=== PATIENT | female | born 1950 | race Caucasian/White ===

== ENCOUNTER → 2016-09-20 | Outpatient (CLI) | payer BC ==
[~2016-09-20] MED LIST: ANT25 PO; ASCO500T16 PO; ASPI81TA28 PO; ATOR-26 PO; BECL1AER5 NAE; CALC-354 PO; FLUO10CA24 PO; FLUO20CA20 PO; GABA1CAP4 PO; LCTX PO; LPT40 PO; LSN5 PO; MECL1TAB42 PO; METH-467 PO; METO25TA3 PO; MOME6000 NAE; MULT-614 PO; NITR0.4S UT; NITR100C6 PO; NRV/5 PO; OMEG10007 PO; PRAM0.129 PO; RANI300C PO
--- NOTE | 2016-09-20 09:22 | DIAGNOSTIC IMAGING REPORT ---
CT SCAN OF THE PARANASAL SINUSES CLINICAL HISTORY: Chronic sinusitis. COMPARISON STUDY: CT of the paranasal sinuses dated 10/13/2010. MRI of the brain dated 10/13/2010. TECHNIQUE: High-resolution CT scan of the paranasal sinuses is performed. Images are reviewed in the axial, sagittal, and coronal planes. IV contrast was not administered for this examination. A dose lowering technique was utilized adhering to the principles of ALARA. CT DOSE: 285.25 mGycm FINDINGS: Postoperative change: There is evidence of maxillary antrectomy with bilateral antrostomy formation as well as ethmoid sinus resection. Maxillary antra: Clear bilaterally. Ethmoid cavities: Clear bilaterally. Sphenoid sinuses: Clear. Frontal sinuses: Trace mucosal thickening is seen bilaterally. Antrostomies: Patent bilaterally. Frontoethmoidal and sphenoethmoidal recesses: Patent bilaterally. Carotid arteries: The carotid arteries are covered noting a septal attachment on the right. Ethmoid roofs: The ethmoid roofs are symmetric. Small bony defects are questioned in the ethmoid roof bilaterally, best seen on coronal image #19. Nasal turbinates: Normal in appearance. Nasal septum: There is minimal leftward deviation of the bony nasal septum. Optic nerves: Covered. Orbits: The bony orbits are intact. Orbital contents are normal in appearance. Calvarium: The imaged calvarium is normal in appearance Mastoid air cells: Underpneumatized but clear bilaterally. Brain parenchyma: A 6 mm calcified extra-axial nodule seen on image #122 is unchanged and likely represents a small meningioma. Partially visualized brain parenchyma is within normal limits. IMPRESSION: Postoperative change with no significant paranasal sinus disease identified. See above. Electronically signed by: Harrison Godoy M.D. 09/20/2016 9:21 AM Dictated Date/Time: 09/20/2016 9:16 AM
== END | disposition home or self-care (01) ==
LOC: C.CTS 08:54
PROVIDERS: ATTEND Otolaryngology
DX: J32.9 Chronic sinusitis, unspecified (principal)

== ENCOUNTER 2016-10-10 14:27 | Observation (INO) | payer BC ==
[~2016-10-10] VITALS: Ht 172.7 cm; Wt 106.4 kg
[2016-10-10] VITALS (9 sets, daily range): BP systolic 112–138; BP diastolic 66–74; PULSE 55–61; TEMP 36.5–36.7; O2SAT 93–97; Ht 172.7 cm; Wt 106.4 kg
[~2016-10-10 14:27] MED LIST changes: -ASCO500T16 PO; -ASPI81TA28 PO; -ATOR-26 PO; -CALC-354 PO; -FLUO10CA24 PO; -FLUO20CA20 PO; -GABA1CAP4 PO; -LCTX PO; -LSN5 PO; -MECL1TAB42 PO; -METH-467 PO; -METO25TA3 PO; -MOME6000 NAE; -MULT-614 PO; -NITR0.4S UT; -NRV/5 PO; -RANI300C PO
[2016-10-10] MEDS ORDERED: MOME6000 NAE (15:18)
[2016-10-10] MEDS ORDERED: GABA1CAP4 PO (15:18)
[2016-10-10] MEDS ORDERED: ATOR-26 PO (15:18)
[2016-10-10] MEDS ORDERED: NITROGLYCERIN OINT 2% 1GM PACKET EXT STA (15:19)
[2016-10-10] MEDS ORDERED: NITROGLYCERIN/D5W 100MCG/ML 20ML SYR ONE (15:20)
[2016-10-10] MEDS ORDERED: HEPARIN SOD (PORCINE) 1000 UNIT/ML 10 ML VIAL ONE ×2 (15:20→15:26)
[2016-10-10] MEDS ORDERED: MIDAZOLAM HCL 1 MG/ML 2ML VIAL ONE (15:20)
[2016-10-10] MEDS ORDERED: FENTANYL CITRATE INJ 50 MCG/1 ML 2 ML VIAL ONE (15:20)
[2016-10-10] MEDS ORDERED: MECL1TAB42 PO (15:20)
[2016-10-10] MEDS ORDERED: NiCARDipine HCL INJ 2.5 MG/ML 10 ML AMP ONE (15:20)
[2016-10-10] MEDS ORDERED: ASPIRIN 81 MG CHEW PO STA (15:21)
[2016-10-10] MEDS ORDERED: NITROGLYCERIN 0.4 MG SL PER TAB CHARGE ONE (15:23)
[2016-10-10] MEDS ORDERED: NITROGLYCERIN 0.4 MG SL PER TAB CHARGE SL ONE (15:30)
[2016-10-10] MEDS ORDERED: HEPARIN SOD (PORCINE) 1000 UNIT/ML 10 ML VIAL IV ONE (15:30)
[2016-10-10] MEDS ORDERED: NITROGLYCERIN 0.4 MG SL PER TAB CHARGE SL PRN ×2 (15:45→17:15)
[2016-10-10] MEDS ORDERED: LCTX PO (15:45)
[2016-10-10 15:46] LABS: BASO % 0.7 %; BASO ABS # 0.05 K/uL (0-0.2); COMPLETE YES; EOS % 3.4 %; HEMATOCRIT 43.1 % (37-47); IG% 0.4 %; LYMPH ABS # 2.04 K/uL (1.2-3.4); MEAN CELL VOLUME 90.5 fL (80-100); MEAN CORPUSCULAR HEMOGLOBIN 31.5 pg (25-34); MEAN CORPUSCULAR HGB CONC 34.8 g/dl (32-36); MEAN PLATELET VOLUME 9.4 fL (7.4-10.4); MONO % 7.4 %; NEUT % 59.1 %; PLATELET COUNT 226 K/uL (130-400); RED BLOOD COUNT 4.76 M/uL (4.2-5.4); WHITE BLOOD COUNT 7.03 K/uL (4.8-10.8)
--- NOTE | 2016-10-10 15:48 | EMERGENCY ROOM VISIT NOTE ---
ED Visit Note First contact with patient: 15:01 Pt seen and examined at bedside with the PA. I obtained my history and performing physical patient also. Patient with concerning story for chest pain and found to have a new left bundle-branch block on EKG. Upon noticing this the PA came to me and we immediately called a hard alert. Cardiology came to bedside and discussed with the tea tree farmer with the time were already performing a catheterization on the lab. Patient's vital signs in the emergency room stable, she was mildly hypertensive. Patient stated she had had a cardiac catheterization approximate 5 years ago, but has no indwelling stents. Patient states she does follow with a dot net developer regularly as a precaution. Patient denies any recent illness or injury. Patient's pain nonradiating, mild lightheadedness and mild sense of difficulty breathing noted. Patient aware of concern and need for emergent cardiology involvement and likely catheterization again today. She was agreeable with plan. Aspirin ordered, nitroglycerin ordered as well. Additional orders will be directed by cardiology now bedside. Doubt dissection, tamponade, PE, pneumothorax given chronicity of symptoms evolving over the course of the last month and noted only with exertion until last evening.
[2016-10-10 15:49] LABS: ISTAT CREATININE 1.1 mg/dl (0.6-1.3); ISTAT HEMOGLOBIN 14.3 g/dl (12.0-16.0); ISTAT IONIZED CALCIUM 1.21 mmol/l (1.12-1.32)
--- NOTE | 2016-10-10 15:49 | EMERGENCY ROOM VISIT NOTE ---
History First contact with patient: 15:01 Chief Complaint: CARDIAC ASSESSMENT Stated Complaint: HEAVINESS IN CHEST, FLUTTERING Nursing Triage Summary: Pt. reports tightness in her chest that worsens with activity. She reports walking around last night and felt a "fluttering" in her chest that resolved with rest. Reports having a heart cath in the past. History of Present Illness The patient is a 66 year old female who presents to the Emergency Room via private vehicle accompanied by with complaints of "heaviness in chest, fluttering". The patient states that she has a history of previous heart catheterization and follows with Dr. Pyle. Most recently this past Friday she was walking, and developed the chest heaviness, and his sensation is associated take a deep breath. She states that this has continued when she exerts herself. Yesterday evening after exertion the pain persisted, and did not go away. She fell asleep with the pain, and woke up today with the chest discomfort still in the substernal region. She at this time notes she took an 81 mg aspirin this morning, and denies any history of blood clots, shortness of breath currently or smoking. Review of Systems A complete 10-point Review of Systems was discussed with the patient, with pertinent positives and negatives listed in the History of Present Illness. All remaining Review of Systems questions can be considered negative unless otherwise specified. Past Medical/Surgical History Medical Problems: (1) Bacteremia (2) Clostridium difficile colitis (3) Cystocele (4) Depression (5) History of coronary artery disease (6) Hyperlipidemia (7) Migraine (8) Rectocele (9) Sleep apnea (10) Traumatic perforation of large intestine Surgical Problems: (1) H/O foot surgery (2) H/O sinus surgery (3) H/O: hysterectomy (4) Hx of shoulder surgery (5) Hx of tonsillectomy (6) S/P BSO (status post bilateral salpingo-oophorectomy) Family History Cancer Diabetes mellitus FH: heart disease Hypertension Social History Smoking Status: Never Smoker Alcohol Use: none Drug Use: none Marital Status: Housing Status: lives with family Occupation Status: retired Current/Historical Medications Scheduled Amlodipine Besylate (Amlodipine Besylate), 5 MG PO DAILY Ascorbic Acid (Ascorbic Acid), 500 MG PO BID Aspirin (Aspirin Ec), 81 MG PO DAILY Atorvastatin (Lipitor), 80 MG PO HS Calcium Carbonate-Cholecalcife (Caltrate 600+D), 1 TAB PO HS Fish Oil (Culver-3), 2 CAP PO BID Fluoxetine HCl (Fluoxetine HCl), 10 MG PO DAILY Gabapentin (Gabapentin), 600 MG PO HS Lactobacillus Acidophilus (Lactinex), 2 TABS PO QAM Lisinopril (Lisinopril), 5 MG PO DAILY Methenamine Mandelate (Methenamine Mandelate), 1 GM PO BID Metoprolol Succinate (Toprol Xl), 25 MG PO QAM Mometasone Furoate (Nasal) (Mometasone Furoate), 1 SPRAY WAQAR DAILY Multiple Vitamins W/ Minerals (Centrum Silver Ultra Wome), 1 TAB PO DAILY Scheduled PRN Meclizine Hcl (Meclizine Hcl), 25 MG PO TID PRN for Dizziness or Vertigo Physical Exam Vital Signs Date Time Temp Pulse Resp B/P (MAP) Pulse Ox O2 Delivery O2 Flow Rate FiO2 10/10/16 17:00 36.6 57 19 121/74 (90) 94 Room Air 10/10/16 16:45 36.6 60 19 128/72 94 Room Air 10/10/16 16:20 65 16 112/64 (80) 98 Room Air 10/10/16 16:15 65 16 107/86 (93) 98 Room Air 10/10/16 16:10 60 16 145/66 (92) 98 Room Air 10/10/16 16:09 60 16 145/66 (92) 98 Room Air 10/10/16 15:31 85 20 153/70 98 Room Air 10/10/16 15:00 84 16 162/92 95 Room Air 10/10/16 14:54 73 10/10/16 14:52 94 Room Air 10/10/16 14:49 95 Room Air 10/10/16 14:32 36.4 74 16 144/80 97 Room Air Physical Exam VITAL SIGNS - Vital signs and nursing notes were reviewed. Patient is currently afebrile, hypertensive 144/80, non-tachycardic and saturating well on room air 97%. GENERAL -66-year-old female appearing her stated age who is in no acute distress. Communicates well with provider and answers questions appropriately. SKIN - Without rashes. No petechial rashes. HEAD - NC/AT. LUNGS - Chest wall symmetric without accessory muscle use, intercostals retractions, or central cyanosis. Normal vesicular breath sounds CTA B/L. No wheezes, rales, or rhonchi appreciated. CARDIAC - RRR with S1/S2. No murmur, rubs, or gallops appreciated. ABDOMEN - Abdominal contour without pulsations or visible masses. BS normoactive all four quadrants. No tenderness, palpable masses, hepatosplenomegaly, or ascites noted. EXTREMITIES - No clubbing or peripheral cyanosis. No pretibial edema present. She is neurovascularly intact in the extremities. +5/5 strength noted in UE/LE bilaterally. NEUROLOGIC - Cranial nerves II through XII grossly intact. Sensory intact to light touch throughout. Medical Decision & Procedures Laboratory Results 10/10/16 15:20 Red Blood Count 4.76, Mean Corpuscular Volume 90.5, Mean Corpuscular Hemoglobin 31.5, Mean Corpuscular Hemoglobin Concent 34.8, Mean Platelet Volume 9.4, Neutrophils (%) (Auto) 59.1, Lymphocytes (%) (Auto) 29.0, Monocytes (%) (Auto) 7.4, Eosinophils (%) (Auto) 3.4, Basophils (%) (Auto) 0.7, Neutrophils # (Auto) 4.15, Lymphocytes # (Auto) 2.04, Monocytes # (Auto) 0.52, Eosinophils # (Auto) 0.24, Basophils # (Auto) 0.05 10/10/16 15:20 Test 10/10/16 15:20 10/10/16 15:29 10/10/16 15:40 White Blood Count 7.03 K/uL (4.8-10.8) Red Blood Count 4.76 M/uL (4.2-5.4) Hemoglobin 15.0 g/dL (12.0-16.0) Hematocrit 43.1 % (37-47) Mean Corpuscular Volume 90.5 fL (80-100) Mean Corpuscular Hemoglobin 31.5 pg (25-34) Mean Corpuscular Hemoglobin Concent 34.8 g/dl (32-36) Platelet Count 226 K/uL (130-400) Mean Platelet Volume 9.4 fL (7.4-10.4) Neutrophils (%) (Auto) 59.1 % Lymphocytes (%) (Auto) 29.0 % Monocytes (%) (Auto) 7.4 % Eosinophils (%) (Auto) 3.4 % Basophils (%) (Auto) 0.7 % Neutrophils # (Auto) 4.15 K/uL (1.4-6.5) Lymphocytes # (Auto) 2.04 K/uL (1.2-3.4) Monocytes # (Auto) 0.52 K/uL (0.11-0.59) Eosinophils # (Auto) 0.24 K/uL (0-0.5) Basophils # (Auto) 0.05 K/uL (0-0.2) RDW Standard Deviation 44.8 fL (36.4-46.3) RDW Coefficient of Variation 13.6 % (11.5-14.5) Immature Granulocyte % (Auto) 0.4 % Immature Granulocyte # (Auto) 0.03 K/uL (0.00-0.02) Prothrombin Time 10.9 SECONDS (9.0-12.0) Prothromb Time International Ratio 1.0 (0.9-1.1) Activated Partial Thromboplast Time 25.9 SECONDS (21.0-31.0) Partial Thromboplastin Ratio 1.0 Est Creatinine Clear Calc Drug Dose 65.7 ml/min Estimated GFR () 61.4 Estimated GFR (Non- 53.0 BUN/Creatinine Ratio 19.6 (10-20) Calcium Level 9.6 mg/dl (8.5-10.1) Magnesium Level 2.5 mg/dl (1.8-2.4) Total Bilirubin 0.6 mg/dl (0.2-1) Aspartate Amino Transf (AST/SGOT) 24 U/L (15-37) Alanine Aminotransferase (ALT/SGPT) 41 U/L (12-78) Alkaline Phosphatase 72 U/L (45-117) Total Protein 7.2 gm/dl (6.4-8.2) Albumin 3.9 gm/dl (3.4-5.0) Globulin 3.3 gm/dl (2.5-4.0) Albumin/Globulin Ratio 1.2 (0.9-2) Thyroid Stimulating Hormone (TSH) 1.210 uIu/ml (0.300-4.500) Hepatitis C Antibody Screen NEG (NEG) Bedside Hemoglobin 14.3 g/dl (12.0-16.0) Bedside Hematocrit 42 % (37-47) Bedside Sodium 142 mEq/L (135-144) Bedside Potassium 4.0 mEq/L (3.3-5.0) Bedside Chloride 107 mEq/L (101-112) Bedside Total CO2 25 mEq/l (24-31) Anion Gap 15.0 mmol/L (16-25) Bedside Blood Urea Nitrogen 21 mg/dl (7-18) Bedside Creatinine 1.1 mg/dl (0.6-1.3) Bedside Glucose (other) 115 mg/dl (70-99) Bedside Ionized Calcium (Marques) 1.21 mmol/l (1.12-1.32) Bedside Troponin I < 0.030 ng/ml (0-0.045) Medications Administered Medications (Trade) Dose Ordered Sig/Komal Route Start Time Stop Time Status Last Admin Dose Admin Fentanyl Citrate (Fentanyl Inj) 100 mcg STK-MED ONCE .ROUTE 10/10/16 15:20 10/10/16 15:21 DC 10/10/16 15:20 25 MCG Midazolam HCl (Versed Inj) 2 mg STK-MED ONCE .ROUTE 10/10/16 15:20 10/10/16 15:21 DC 10/10/16 15:20 1 MG Aspirin (Aspirin Chew) 162 mg NOW STAT PO 10/10/16 15:21 10/10/16 15:22 DC 10/10/16 15:26 162 MG Nitroglycerin (Nitrostat Tab) 0.4 mg STK-MED ONCE .ROUTE 10/10/16 15:23 10/10/16 15:24 DC 10/10/16 15:24 0.4 MG Sodium Chloride 1,000 ml @ 125 mls/hr Q8H IV 10/10/16 16:47 10/10/16 22:46 10/10/16 16:47 125 MLS/HR Medical Decision Patient was seen and evaluated as above. After obtaining a thorough history and physical examination IV access was initiated, and the above workup was performed. Patient's EKG at bedside reveals what appears to be a new left bundle-branch block. This was compared to most recent EKG in our system, and does indeed appear to be new. With her symptoms of chest pain, previous cardiac catheterization that reveals blockage, as well as a new left bundle branch block and do believe that calling heart alert is appropriate. Case was discussed with the attending physician. Patient was given 160 mg of chewable aspirin in conjunction with her tablet she had earlier today, as well as nitroglycerin sublingual 2. The business control specialist, Dr. Cruz was also present. The patient at this time will most likely go to the Patch Press Operator for further identification of her heart blockage. Please refer to further documentation regarding her stay. In evaluation treatment this patient the following differential diagnoses were entertained: LA, PE, among others. Impression Primary Impression: Chest pain Additional Impression: New onset left bundle branch block (LBBB) Departure Information Dispostion Admitted as an inpatient Condition FAIR Referrals Negro Silva M.D. (PCP) Patient Instructions My [facility] Problem Qualifiers
[2016-10-10 16:03] LABS: BUN/CREATININE RATIO 19.6 (10-20); CALCIUM 9.6 mg/dl (8.5-10.1); CREATININE 1.1 mg/dl (0.60-1.20); MAGNESIUM 2.5 mg/dl (1.8-2.4); POTASSIUM 3.9 mmol/L (3.5-5.1)
[2016-10-10 16:10] LABS: PROTHROMBIN TIME (PATIENT) 10.9 SECONDS (9.0-12.0)
[2016-10-10 16:14] LABS: ALB/GLOB RATIO 1.2 (0.9-2); THYROID STIMULATING HORMONE 1.21 uIu/ml (0.300-4.500)
[2016-10-10] MEDS ORDERED: NITR0.4S UT (16:18)
--- NOTE | 2016-10-10 16:44 | CARDIOLOGY CONSULTATION ---
DATE OF CONSULTATION: 10/10/2016 TIME: 15:57 p.m. PRIMARY STUDIO OPERATOR: Dr. Zechariah Pyle of [facility]. CONSULTING PHYSICIAN: Dr. Rao. REASON FOR CONSULTATION: Heart alert. HISTORY OF PRESENT ILLNESS: Ms. Young is a very pleasant 66-year-old female with a history significant for nonobstructive CAD, hypertension, dyslipidemia and acid reflux, who presented to [facility] today with a complaint of chest discomfort. She has had substernal chest discomfort described as a heaviness without radiation. There is some associated shortness of breath. She has had exertional symptoms since Friday, 6 days ago. Her symptoms would occur with exertion and resolved with rest. Symptoms became constant since yesterday at noon and have been present at rest since that time. Symptoms are worsened with exertion and improved with rest, but continued despite rest. Because her symptoms continue to occur, she came to the Emergency Department for further evaluation. Initial ECG demonstrated a left bundle branch block, which was new compared to the most recent ECG at [facility]. She continued to have chest discomfort and was found to be mildly hypertensive. I responded to the heart alert due to the fact that Dr. Reyes of interventional cardiology was in the midst of the procedure. When I entered the room, she continued to have chest discomfort. She denies current shortness of breath, syncope, or near syncope. She did have palpitations overnight, but no palpitations currently. She denies any recent melena, hematochezia, hematuria, or bleeding. She denies edema. Her last oral intake was lunch at approximately 13:30 today. REVIEW OF SYSTEMS: As above and otherwise unremarkable. PAST MEDICAL HISTORY: 1. Nonobstructive CAD with a cardiac catheterization on 08/22/2012, demonstrating mid LAD nonobstructive CAD. 2. Hypertension. 3. Dyslipidemia. 4. Depression/anxiety. 5. Acid reflux. HOME MEDICATIONS: Include aspirin 81 mg daily, metoprolol succinate 25 mg daily, lisinopril 5 mg daily, Norvasc 5 mg daily, omeprazole 20 mg p.o. b.i.d. p.r.n., ranitidine 150 mg p.o. b.i.d. p.r.n., Prozac 10 mg daily, and multivitamin. SOCIAL HISTORY: Denies tobacco or alcohol abuse. She is and lives with her . Two sons. One son is currently going through a divorce, which has been a big stressor on her. Her is present at the bedside. FAMILY HISTORY: Father at the age of 54 with myocardial infarction. Brother also had myocardial infarction. PHYSICAL EXAMINATION: VITAL SIGNS: Temperature 36.4 degrees, heart rate 85 beats per minute, respiratory rate 20, blood pressure 153/70 mmHg, and oxygen saturation 98% on room air. GENERAL: In no acute distress. She is alert and oriented. HEENT: Anicteric sclerae. NECK: No appreciable JVD. CARDIAC EXAM: No ventricular heave. Regular, normal S1 and S2. No murmurs, rubs, or gallops were auscultated. LUNGS: Clear to auscultation bilaterally without wheezes, rales or rhonchi. ABDOMEN: Soft, nontender, and nondistended. Normoactive bowel sounds. EXTREMITIES: 2+ radial pulses bilaterally. 2+ dorsalis pedis pulses bilaterally. No cyanosis. No pitting edema. PSYCHIATRIC: Affect appears appropriate. ECG upon presentation sinus rhythm with first degree AV block with a left bundle branch block pattern. 69 beats per minute. ECG on 01/06/2016 demonstrated sinus rhythm with first degree AV block. Left bundle branch block is now new. LABORATORY DATA: Point of care labs were available. Sodium 142, potassium 4, BUN 21, creatinine 1.1, and hemoglobin 14.3. Cardiac catheterization report from 08/22/2012 reviewed as noted above with a mid LAD listed as 50%. FFR was performed with FFR of 0.92. Cardiac catheterization images were personally reviewed as well from that 2012 catheterization. ASSESSMENT AND PLAN: 1. Heart alert: A heart alert was called by the Emergency Department. She does have symptoms concerning for angina, especially given her history of coronary artery disease with a new left bundle branch block. Nitroglycerin was ordered and her symptoms improved significantly with nitroglycerin, but remain present. Heparin 5000 units x1 was also ordered. She was given further aspirin. The decision was made to perform coronary angiography emergently given the concern for ruptured plaque. Risks and benefits were discussed with her in detail. She was made aware that CT surgery is not available at this facility. She has given informed written consent to undergo coronary angiography by Dr. Reyes of interventional cardiology. 2. Left bundle branch block: She has a new onset left bundle branch block from last ECG in the setting of symptoms concerning for angina. Heart alert was called by the Emergency Department. Coronary angiography pending. 3. Chest pain/angina: Her symptoms are concerning for angina and coronary angiography was planned as above. If coronary angiography does not demonstrate any significant coronary artery disease, noncardiac chest pain evaluation can be performed by the hospitalist service. 4. Coronary artery disease: She does have a history of nonobstructive coronary artery disease. Continue risk factor modification with high intensity statin therapy, aspirin, beta venkat, and AKIN inhibitor. 5. Hypertension: Continue outpatient medications and adjust medications as appropriate. 6. Disposition: The patient's care was discussed with Dr. Rao of the Emergency Department as well as health records technology teacher, Dr. Reyes. The patient's care was also discussed with Dr. Smith of [facility] as they will resume her cardiology care as she follows with Dr. Pyle. Greater than 45 minutes critical care time spent reviewing prior cardiac catheterization images, coordinating care, counseling pt, directing medications for possible acute myocardial infarction, and discussing with multiple physicians, as well as patient and her . Thank you for allowing me to participate in care of Ms. Young. Sincerely, GARRETT
[2016-10-10] MEDS ORDERED: SODIUM CHLORIDE 0.9% 1000ML 1,000 ML IV SCH (16:47)
[2016-10-10] MEDS ORDERED: ASCO500T16 PO (16:49)
[2016-10-10] MEDS ORDERED: METH-467 PO (16:49)
--- NOTE | 2016-10-10 16:54 | Procedure Note ---
Pre-Mod Sedation Assessment General Date of Moderate Sedation: Oct 10, 2016. Vital Signs: Vital Signs Past 12 Hours Date Time Temp Pulse Resp B/P (MAP) Pulse Ox O2 Delivery O2 Flow Rate FiO2 10/10/16 16:20 65 16 112/64 (80) 98 Room Air 10/10/16 16:15 65 16 107/86 (93) 98 Room Air 10/10/16 16:10 60 16 145/66 (92) 98 Room Air 10/10/16 16:09 60 16 145/66 (92) 98 Room Air 10/10/16 15:31 85 20 153/70 98 Room Air 10/10/16 15:00 84 16 162/92 95 Room Air 10/10/16 14:54 73 10/10/16 14:52 94 Room Air 10/10/16 14:49 95 Room Air 10/10/16 14:32 36.4 74 16 144/80 97 Room Air Review Cardiovascular: regular rate, rhythm, no edema Abdomen: normal bowel sounds, non tender Lungs: chest non-tender, lungs clear Airway Class: II Pre-Sedation Airway Assessment Oral Cavity: WNL Able to Visualize Vocal Cords: No Short Thick Neck: No Hx of Sleep Apnea: No Smoking Status: Never Smoker Mallampati Classification: Class II ASA Classification: Class III Procedure Planning Contraindications-for Mod Sed: None Yes Notes The planned sedation has been discussed with the patient and consent obtained. I have identified the patient, determined the appropriateness of sedation and have assessed the patient immediately prior to the procedure. All medicine(s) and interventions are by my order.
--- NOTE | 2016-10-10 16:56 | Procedure Note ---
Post-Mod Sedation Assessment General Date of Moderate Sedation Oct 10, 2016. Vital Signs: Vital Signs Past 12 Hours Date Time Temp Pulse Resp B/P (MAP) Pulse Ox O2 Delivery O2 Flow Rate FiO2 10/10/16 16:20 65 16 112/64 (80) 98 Room Air 10/10/16 16:15 65 16 107/86 (93) 98 Room Air 10/10/16 16:10 60 16 145/66 (92) 98 Room Air 10/10/16 16:09 60 16 145/66 (92) 98 Room Air 10/10/16 15:31 85 20 153/70 98 Room Air 10/10/16 15:00 84 16 162/92 95 Room Air 10/10/16 14:54 73 10/10/16 14:52 94 Room Air 10/10/16 14:49 95 Room Air 10/10/16 14:32 36.4 74 16 144/80 97 Room Air Review - Discharge Criteria Vital Signs Stable: Yes Alert/Oriented/Conversant: Yes Returned to Baseline Mental St: Yes Nausea Absent/Minimal: Yes Pain/Discomfort/Absent/Minimal: Yes Normal/Baseline Respirations: Yes Active Bleeding?: No Pt Received D/C Instructions: N/A Prescriptions Given: Transmitted Specific Proced. D/C Criteria Distal Pulses Present (Cardiac: Yes Groin site assessed-Card Cath: N/A Voided Prior To Discharge: N/A Discharged Patients Adult Escort/Transportation: Yes
[2016-10-10] MEDS ORDERED: ACETAMINOPHEN 325 MG TAB PO PRN ×2 (17:00→17:15)
--- NOTE | 2016-10-10 17:09 | History and Physical ---
History & Physical Date & Time of Service: Oct 10, 2016 at 17:09 . Chief Complaint: chest pain . Primary Care Physician: Negro Silva M.D. . History of Present Illness Source: patient, clinic records, hospital records 66 [address]O female followed by Dr. Silva. History of non-obstructive coronary artery disease per cath 2012, hypertension, dyslipidemia, and other problems noted below. Experiencing exertional chest discomfort over past several days. Chest discomfort described as midsternal pressure. No radiation. Associated with dyspnea. No associated diaphoresis, nausea, vomiting. Occurring with moderate exertion. Relieved by rest. More severe episode to day. Came to ED for evaluation. CP relieved by SL nitro x 3. EKG demonstrated new LBBB. 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 . Past Medical/Surgical History Chronic and Resolved Medical Problems: (1) Bacteremia Permanent Comment: E coli Status: Resolved (2) Clostridium difficile colitis Permanent Comment: x 2 Status: Resolved (3) Cystocele Permanent Comment: s/p repair Status: Resolved (4) Depression Status: Chronic (5) History of coronary artery disease Permanent Comment: cath 08/2012 - non obstructive disease Status: Chronic (6) Migraine Status: Chronic (7) Rectocele Permanent Comment: s/p repair Status: Resolved (8) Sleep apnea Status: Chronic (9) Traumatic perforation of large intestine Permanent Comment: during surgery for BSO Status: Resolved Surgical Problems: (1) H/O foot surgery Status: Chronic (2) H/O sinus surgery Status: Chronic (3) H/O: hysterectomy Status: Chronic (4) Hx of shoulder surgery Status: Chronic (5) Hx of tonsillectomy Status: Chronic (6) S/P BSO (status post bilateral salpingo-oophorectomy) Status: Chronic Family History FATHER Myocardial infarction MOTHER CHF (congestive heart failure) Diabetes mellitus BROTHER Heart disease BROTHER Heart disease Social History Smoking Status: Never Smoker Alcohol Use: none Drug Use: none Marital Status: Occupational Status: retired Immunizations History of Influenza Vaccine: Yes History of Tetanus Vaccine?: Yes Tetanus Immunization Date: Mar 16, 2013 History of Pneumococcal: No History of Hepatitis B Vaccine: No Multi-Drug Resistant Organisms History of MDRO: No Allergies Coded Allergies: Clavulanic Acid (Verified Allergy, Intermediate, RASH, 02/01/16) Erythromycin (Verified Allergy, Intermediate, RASH, 02/01/16) Penicillins (Verified Allergy, Intermediate, RASH, 02/01/16) CAN TAKE AMOXICILLIN Tetracycline (Verified Allergy, Intermediate, RASH, 02/01/16) Sulfa Drugs (Verified Allergy, Unknown, RASH, 02/01/16) Home Medications Scheduled Amlodipine Besylate (Amlodipine Besylate), 5 MG PO DAILY Ascorbic Acid (Ascorbic Acid), 500 MG PO BID Aspirin (Aspirin Ec), 81 MG PO DAILY Atorvastatin (Lipitor), 80 MG PO HS Calcium Carbonate-Cholecalcife (Caltrate 600+D), 1 TAB PO HS Fish Oil (Evans-3), 2 CAP PO BID Fluoxetine HCl (Fluoxetine HCl), 10 MG PO DAILY Gabapentin (Gabapentin), 600 MG PO HS Lactobacillus Acidophilus (Lactinex), 2 TABS PO QAM Lisinopril (Lisinopril), 5 MG PO DAILY Methenamine Mandelate (Methenamine Mandelate), 1 GM PO BID Metoprolol Succinate (Toprol Xl), 25 MG PO QAM Mometasone Furoate (Nasal) (Mometasone Furoate), 1 SPRAY WAQAR DAILY Multiple Vitamins W/ Minerals (Centrum Silver Ultra [place]), 1 TAB PO DAILY Scheduled PRN Meclizine Hcl (Meclizine Hcl), 25 MG PO TID PRN for Dizziness or Vertigo Review of Systems Constitutional: No fever, No weight loss Eyes: No worsening of vision ENT: No nasal symptoms, No sore throat Respiratory: + dyspnea on exertion, No cough Cardiovascular: + chest pain, No edema Abdomen: No pain, No nausea, No vomiting, No diarrhea, No GI bleeding Musculoskeletal: No joint pain, No muscle pain Genitourinary - Female: No dysuria, No hematuria Neurologic: + problem reported (no headaches) Psychiatric: + depression symptoms Endocrine: No excessive thirst, No excessive urination Hematologic / Lymphatic: No swollen lymph nodes Integumentary: No rash, No new/changing skin lesions Physical Exam Vital Signs Date Time Temp Pulse Resp B/P (MAP) Pulse Ox O2 Delivery O2 Flow Rate FiO2 10/10/16 16:45 36.6 60 19 128/72 94 Room Air 10/10/16 16:20 65 16 112/64 (80) 98 Room Air 10/10/16 16:15 65 16 107/86 (93) 98 Room Air 10/10/16 16:10 60 16 145/66 (92) 98 Room Air 10/10/16 16:09 60 16 145/66 (92) 98 Room Air 10/10/16 15:31 85 20 153/70 98 Room Air 10/10/16 15:00 84 16 162/92 95 Room Air 10/10/16 14:54 73 10/10/16 14:52 94 Room Air 10/10/16 14:49 95 Room Air 10/10/16 14:32 36.4 74 16 144/80 97 Room Air General Appearance: WD/WN, no apparent distress Head: normocephalic, atraumatic Eyes: normal inspection, PERRL, EOMI, sclerae normal ENT: normal ENT inspection, hearing grossly normal, pharynx normal Neck: supple, no adenopathy, thyroid normal, no JVD, trachea midline Respiratory/Chest: lungs clear, no respiratory distress, no accessory muscle use Cardiovascular: regular rate, rhythm, no edema, no gallop, no JVD, no murmur Abdomen/GI: normal bowel sounds, non tender, soft, no organomegaly, no pulsatile mass Extremities/Musculoskelatal: no calf tenderness, no pedal edema 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 as tested (PERRL, EOMI, no facial palsy, no dysarthria), no motor/sensory deficits (motor grossly intact), alert, oriented x 3 Skin: normal color Lymphatic: no adenopathy (cervical) Diagnostics Laboratory Results Results Past 24 Hours Test 10/10/16 15:20 10/10/16 15:29 10/10/16 15:40 Range/Units White Blood Count 7.03 4.8-10.8 K/uL Red Blood Count 4.76 4.2-5.4 M/uL Hemoglobin 15.0 12.0-16.0 g/dL Hematocrit 43.1 37-47 % Mean Corpuscular Volume 90.5 80-100 fL Mean Corpuscular Hemoglobin 31.5 25-34 pg Mean Corpuscular Hemoglobin Concent 34.8 32-36 g/dl Platelet Count 226 130-400 K/uL Mean Platelet Volume 9.4 7.4-10.4 fL Neutrophils (%) (Auto) 59.1 % Lymphocytes (%) (Auto) 29.0 % Monocytes (%) (Auto) 7.4 % Eosinophils (%) (Auto) 3.4 % Basophils (%) (Auto) 0.7 % Neutrophils # (Auto) 4.15 1.4-6.5 K/uL Lymphocytes # (Auto) 2.04 1.2-3.4 K/uL Monocytes # (Auto) 0.52 0.11-0.59 K/uL Eosinophils # (Auto) 0.24 0-0.5 K/uL Basophils # (Auto) 0.05 0-0.2 K/uL RDW Standard Deviation 44.8 36.4-46.3 fL RDW Coefficient of Variation 13.6 11.5-14.5 % Immature Granulocyte % (Auto) 0.4 % Immature Granulocyte # (Auto) 0.03 0.00-0.02 K/uL Prothrombin Time 10.9 9.0-12.0 SECONDS Prothromb Time International Ratio 1.0 0.9-1.1 Activated Partial Thromboplast Time 25.9 21.0-31.0 SECONDS Partial Thromboplastin Ratio 1.0 Sodium Level 142 136-145 mmol/L Potassium Level 3.9 3.5-5.1 mmol/L Chloride Level 109 98-107 mmol/L Carbon Dioxide Level 27 21-32 mmol/L Anion Gap 6.0 15.0 16-25 mmol/L Blood Urea Nitrogen 22 7-18 mg/dl Creatinine 1.10 0.60-1.20 mg/dl Est Creatinine Clear Calc Drug Dose 65.7 ml/min Estimated GFR () 61.4 Estimated GFR (Non- 53.0 BUN/Creatinine Ratio 19.6 10-20 Random Glucose 110 70-99 mg/dl Calcium Level 9.6 8.5-10.1 mg/dl Magnesium Level 2.5 1.8-2.4 mg/dl Total Bilirubin 0.6 0.2-1 mg/dl Aspartate Amino Transf (AST/SGOT) 24 15-37 U/L Alanine Aminotransferase (ALT/SGPT) 41 12-78 U/L Alkaline Phosphatase 72 45-117 U/L Total Protein 7.2 6.4-8.2 gm/dl Albumin 3.9 3.4-5.0 gm/dl Globulin 3.3 2.5-4.0 gm/dl Albumin/Globulin Ratio 1.2 0.9-2 Thyroid Stimulating Hormone (TSH) 1.210 0.300-4.500 uIu/ml Bedside Hemoglobin 14.3 12.0-16.0 g/dl Bedside Hematocrit 42 37-47 % Bedside Sodium 142 135-144 mEq/L Bedside Potassium 4.0 3.3-5.0 mEq/L Bedside Chloride 107 101-112 mEq/L Bedside Total CO2 25 24-31 mEq/l Bedside Blood Urea Nitrogen 21 7-18 mg/dl Bedside Creatinine 1.1 0.6-1.3 mg/dl Bedside Glucose (other) 115 70-99 mg/dl Bedside Ionized Calcium (Marques) 1.21 1.12-1.32 mmol/l Bedside Troponin I < 0.030 0-0.045 ng/ml EKG EKG performed at 14:33 reviewed and demonstrated NSR at 70 / minute, LBBB. . Impression Assessment and Plan NONOCCLUSIVE CORONARY ARTERY DISEASE Presented with chest pressure and dyspnea with exertion. Symptoms initially relieved by rest. CP in ED relieved by NTG. EKG demonstrated new LBBB. Cardiac cath demonstrated stable nonocclusive disease with 45-50% stenosis LAD. Low clinical suspicion for pulmonary embolism or aortic dissection. Symptoms do not appear to be related to GI or musculoskeletal etiologies. Has been under significant emotional stress lately. Will discuss management further with Cardiology. HYPERTENSION Continue metoprolol, amlodipine, lisinopril. DYSLIPIDEMIA Check lipid profile. Continue atorvastatin. DEPRESSION Has been under significant emotional stress lately. Increase fluoxetine to 20 mg daily. VTE PROPHYLAXIS SQ enoxaparin. Ambulate. DISPOSITION Expected discharge to home. Family Medicine follow-up with Dr. Silva. . Advanced Directives Existing Living Will: No Existing Power of License Registration Examiner: No VTE Prophylaxis VTE Risk Assessment Done? Y/N: Yes Risk Level: Moderate Given or contraindicated: Enoxaparin (Lovenox)SQ
[2016-10-10] MEDS ORDERED: FLUO10CA24 PO (17:34)
[2016-10-10] MEDS ORDERED: METO25TA3 PO (17:34)
[2016-10-10] MEDS ORDERED: LSN5 PO (17:34)
[2016-10-10] MEDS ORDERED: NRV/5 PO (17:34)
--- NOTE | 2016-10-10 17:57 | Cardiac Catheterization ---
Procedure Note Procedure Date Oct 10, 2016. 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 Circumflex - Angiographically normal RCA - Dominant, angiographically normal LVEDP - 4 Arterial Closure: TR Band Summary: 1. Moderate non-obstructive coronary artery disease - 40-50% mid LAD (unchanged angiographically from 2012) 2. Normal intracardiac filling pressure 3. Normal LV systolic function. LVEF 60%. Recommendations: Admit for observation and evaluation for non-cardiac causes of chest pain Continued ASCVD risk factor modification Hemodynamics Rest Ao: 116/60/83 Final Ao: 121/52/80 LV: 122/4 Recommendations Medical therapy and/or Counseling Specimens None Radiation Exposure (mGy) 862 Contrast (mls) 30 Visipaque Fluids (cc crystalloids) 50 Drains None Anesthesia Moderate Procedural Complication(s) None Disposition PCU ACC Data Cardiac Status Clinical evaluation leading to the procedure CAD Presntation: STEMI Anginal Classification: CCS IV Heart Failure: No, NYHA Class: CCS I Cardiogenic Shock w/in 24Hrs: No Cardiac Arrest w/in 24Hrs: No Imaging studies past 6 months: No Stress studies past 6 months: No Coronary Anatomy Dominant: Right LAD (% Stenosis): Mid (40-50) Diagnostic Physician's Name: Hill Reyes MD Status: Emergency Closure Device Percutaneous Entry Location: Radial Closure Device: Radial Band Recommendations: Medical therapy and/or Counseling Intraprocedure Events Significant Dissection: No Perforation: No
[2016-10-10 19:06] LABS: URINE APPEARANCE CLEAR (CLEAR); URINE BILIRUBIN NEG (NEG); URINE COLOR YELLOW; URINE NITRITE NEG (NEG); URINE SPECIFIC GRAVITY 1.041 (1.000-1.030); UROBILINOGEN NEG (NEG); ZZUR CULT IF INDIC CLEAN CATCH NO
[2016-10-10 19:08] LABS: MANUAL MICROSCOPIC REQUIRED? NO; REVIEW REQ? NO
[2016-10-10] MEDS ORDERED: ASPI81TA28 PO (20:42)
[2016-10-10] MEDS ORDERED: CALC-354 PO (20:43)
[2016-10-10] MEDS ORDERED: IV FLUIDS COMPLETED PRN (20:45)
[2016-10-10] MEDS ORDERED: MULT-614 PO (20:51)
[2016-10-10] MEDS ORDERED: GABAPENTIN 300 MG CAP PO SCH (21:00)
[2016-10-10] MEDS ORDERED: ENOXAPARIN 40 MG/0.4 ML SYR SC SCH (21:00)
[2016-10-10] MEDS ORDERED: ATORVASTATIN 40 MG TAB PO SCH (21:00)
[2016-10-10] MEDS: ASCORBIC ACID 500 MG TAB PO SCH (21:12)
[2016-10-11 03:24] VITALS: BP 131/60; PULSE 57; TEMP 36.6; O2SAT 93
[2016-10-11 06:40] LABS: CHOLESTEROL/HDL RATIO 2.5
[2016-10-11 07:30] VITALS: BP 126/72; PULSE 58; TEMP 36.5; O2SAT 93
[2016-10-11 08:00] VITALS: O2SAT 94
[2016-10-11] MEDS: ASCORBIC ACID 500 MG TAB PO SCH (08:08)
[2016-10-11 08:14] VITALS: BP 178/78; PULSE 78; O2SAT 94
[2016-10-11] MEDS ORDERED: METOPROLOL SUCC 25MG EXT REL TAB PO SCH (09:00)
[2016-10-11] MEDS ORDERED: LACTOBACILLUS ACIDOPHILUS (FLORANEX) TAB PO SCH (09:00)
[2016-10-11] MEDS ORDERED: AMLODIPINE BESYLATE 5 MG TAB PO SCH (09:00)
[2016-10-11] MEDS ORDERED: LISINOPRIL 5 MG TAB PO SCH (09:00)
[2016-10-11] MEDS ORDERED: ASPIRIN 81 MG ECTAB PO SCH (09:00)
[2016-10-11] MEDS ORDERED: FLUOXETINE HCL 10 MG CAP PO SCH (09:00)
[2016-10-11] MEDS ORDERED: FLUOXETINE HCL 20 MG CAP PO SCH (09:00)
[2016-10-11] MEDS ORDERED: CEROVITE ADV FORMULA TAB PO SCH (09:00)
[2016-10-11 11:43] VITALS: BP 123/60; PULSE 73; TEMP 36.6; O2SAT 94
--- NOTE | 2016-10-11 13:02 | Progress Note ---
Medicine Progress Note Date & Time of Visit: Oct 11, 2016 at 13:02 . Subjective Experienced some mild chest discomfort this morning in the supine position. Ambulating without CP or SOB. . Objective Last 8 Hrs Date Time Temp Pulse Resp B/P (MAP) Pulse Ox O2 Delivery O2 Flow Rate FiO2 10/11/16 11:43 36.6 73 18 123/60 (81) 94 Room Air 10/11/16 08:14 78 20 178/78 (111) 94 10/11/16 08:00 94 Room Air 10/11/16 07:30 36.5 58 16 126/72 (90) 93 Room Air Physical Exam: General- no distress Neck- no JVD Lungs- clear Heart- RRR Abdomen- + BS, soft, nontender Extremities- no pretibial edema or calf tenderness Neuro- alert . Laboratory Results: Last 24 Hours Test 10/10/16 15:20 10/10/16 15:29 10/10/16 15:40 10/10/16 18:50 White Blood Count 7.03 K/uL Red Blood Count 4.76 M/uL Hemoglobin 15.0 g/dL Hematocrit 43.1 % Mean Corpuscular Volume 90.5 fL Mean Corpuscular Hemoglobin 31.5 pg Mean Corpuscular Hemoglobin Concent 34.8 g/dl Platelet Count 226 K/uL Mean Platelet Volume 9.4 fL Neutrophils (%) (Auto) 59.1 % Lymphocytes (%) (Auto) 29.0 % Monocytes (%) (Auto) 7.4 % Eosinophils (%) (Auto) 3.4 % Basophils (%) (Auto) 0.7 % Neutrophils # (Auto) 4.15 K/uL Lymphocytes # (Auto) 2.04 K/uL Monocytes # (Auto) 0.52 K/uL Eosinophils # (Auto) 0.24 K/uL Basophils # (Auto) 0.05 K/uL RDW Standard Deviation 44.8 fL RDW Coefficient of Variation 13.6 % Immature Granulocyte % (Auto) 0.4 % Immature Granulocyte # (Auto) 0.03 K/uL Prothrombin Time 10.9 SECONDS Prothromb Time International Ratio 1.0 Activated Partial Thromboplast Time 25.9 SECONDS Partial Thromboplastin Ratio 1.0 Sodium Level 142 mmol/L Potassium Level 3.9 mmol/L Chloride Level 109 mmol/L Carbon Dioxide Level 27 mmol/L Anion Gap 6.0 mmol/L 15.0 mmol/L Blood Urea Nitrogen 22 mg/dl Creatinine 1.10 mg/dl Est Creatinine Clear Calc Drug Dose 65.7 ml/min Estimated GFR () 61.4 Estimated GFR (Non- 53.0 BUN/Creatinine Ratio 19.6 Random Glucose 110 mg/dl Calcium Level 9.6 mg/dl Magnesium Level 2.5 mg/dl Total Bilirubin 0.6 mg/dl Aspartate Amino Transf (AST/SGOT) 24 U/L Alanine Aminotransferase (ALT/SGPT) 41 U/L Alkaline Phosphatase 72 U/L Total Protein 7.2 gm/dl Albumin 3.9 gm/dl Globulin 3.3 gm/dl Albumin/Globulin Ratio 1.2 Thyroid Stimulating Hormone (TSH) 1.210 uIu/ml Hepatitis C Antibody Screen NEG Bedside Hemoglobin 14.3 g/dl Bedside Hematocrit 42 % Bedside Sodium 142 mEq/L Bedside Potassium 4.0 mEq/L Bedside Chloride 107 mEq/L Bedside Total CO2 25 mEq/l Bedside Blood Urea Nitrogen 21 mg/dl Bedside Creatinine 1.1 mg/dl Bedside Glucose (other) 115 mg/dl Bedside Ionized Calcium (Marques) 1.21 mmol/l Bedside Troponin I < 0.030 ng/ml Urine Color YELLOW Urine Appearance CLEAR Urine pH 6.0 Urine Specific [place] 1.041 Urine Protein NEG Urine Glucose (UA) NEG Urine Ketones NEG Urine Occult Blood NEG Urine Nitrite NEG Urine Bilirubin NEG Urine Urobilinogen NEG Urine Leukocyte Esterase NEG Test 10/11/16 05:36 Triglycerides Level 134 mg/dl Cholesterol Level 122 mg/dl HDL Cholesterol 48 mg/dl LDL Cholesterol, Calculated 47 mg/dl VLDL Cholesterol, Calculated 27 mg/dl Cholesterol/HDL Ratio 2.5 Assessment & Plan NONOCCLUSIVE CORONARY ARTERY DISEASE Presented with chest pressure and dyspnea with exertion. Symptoms initially relieved by rest. CP in ED relieved by NTG. EKG demonstrated new LBBB. Cardiac cath demonstrated stable nonocclusive disease with 45-50% stenosis LAD. Low clinical suspicion for pulmonary embolism or aortic dissection. Symptoms do not appear to be related to musculoskeletal etiologies. Probable GE reflux this morning. Has been under significant emotional stress lately. GERD Has taken both ranitidine and omeprazole in the past for GERD. Restart ranitidine at 300 mg HS x 1-2 month. HYPERTENSION Continue metoprolol, amlodipine, lisinopril. DYSLIPIDEMIA LDL-c was 47. Continue atorvastatin. DEPRESSION Has been under significant emotional stress lately. Increase fluoxetine to 20 mg daily. VTE PROPHYLAXIS SQ enoxaparin. Ambulate. DISPOSITION Discharge to home. Family Medicine follow-up with Dr. Silva. . Consultants: Cardiology . Procedures: cardiac monitoring cardiac catheterization . Current Inpatient Medications: Current Inpatient Medications Medications (Trade) Dose Ordered Sig/[place]omal Route Start Time Stop Time Status Last Admin Dose Admin Enoxaparin Sodium (Lovenox Inj) 40 mg HS SC 10/10/16 21:00 11/09/16 20:59 10/10/16 21:12 40 MG Acetaminophen (Tylenol Tab) 650 mg Q4H PRN PO 10/10/16 17:15 11/09/16 17:14 Nitroglycerin (Nitrostat Tab) 0.4 mg UD PRN SL 10/10/16 17:15 11/09/16 17:14 Amlodipine Besylate (Norvasc Tab) 5 mg DAILY PO 10/11/16 09:00 11/10/16 08:59 10/11/16 08:10 5 MG Ascorbic Acid (Vitamin C Tab) 500 mg BID PO 10/10/16 21:00 11/09/16 20:59 10/11/16 08:08 500 MG Aspirin (Ecotrin Tab) 81 mg DAILY PO 10/11/16 09:00 11/10/16 08:59 10/11/16 08:10 81 MG Atorvastatin Calcium (Lipitor Tab) 80 mg HS PO 10/10/16 21:00 11/09/16 20:59 10/10/16 21:12 80 MG Gabapentin (Neurontin Cap) 600 mg HS PO 10/10/16 21:00 11/09/16 20:59 10/10/16 21:11 600 MG Lactobacillus Acidophilus (Floranex Tab) 2 tab QAM PO 10/11/16 09:00 11/10/16 08:59 10/11/16 08:09 2 TAB Lisinopril (Zestril Tab) 5 mg DAILY PO 10/11/16 09:00 11/10/16 08:59 10/11/16 08:11 5 MG Metoprolol Succinate (Toprol Xl Tab) 25 mg QAM PO 10/11/16 09:00 11/10/16 08:59 8/25/17 08:09 25 MG Multivitamins/ Minerals (Multivitamin W/ Minerals Tab) 1 tab DAILY PO 10/11/16 09:00 11/10/16 08:59 10/11/16 08:10 1 TAB Miscellaneous (Iv Fluids Completed) 1 ea PRN PRN N/A 10/10/16 20:45 10/10/17 20:44 10/11/16 08:07 1 EA Fluoxetine HCl (Prozac Cap) 20 mg QAM PO 10/11/16 09:00 11/10/16 08:59 10/11/16 08:10 20 MG
[2016-10-11] MEDS ORDERED: RANI300C PO (13:18)
[2016-10-11] MEDS ORDERED: FLUO20CA20 PO (13:18)
--- NOTE | 2016-10-11 13:25 | Discharge Instructions ---
Discharge Instructions Date of Service Oct 11, 2016. Admission Reason for Admission: chest pain . Discharge Discharge Diagnosis / Problem: chest pain- no sign of heart attack Discharge Goals Goal(s): Decrease discomfort, Improve disease control Activity Recommendations Activity Limitations: resume your previous activity . Instructions / Follow-Up Instructions / Follow-Up FOLLOW-UP APPOINTMENTS: FAMILY MEDICINE 10/15/2016 11:00 AM Negro Silva MD CARDIOLOGY 01/01/2017 10:25 AM George Pyle, DO MEDICATION CHANGES: Increase fluoxetine (Prozac) to 20 mg daily for depression. Try ranitidine (Zantac) 300 mg at bedtime for 1-2 months for acid reflux. OTHER INSTRUCTIONS: Seek medical attention if you have: * chest pain or trouble breathing * abdominal pain, nausea, vomiting * diarrhea, dark stools or bloody stools * any unanswered questions or concerns Call 911 if symptoms are severe. Call if you have any questions or problems. My cell # is [phone]. You can also reach a [facility] hospitalist on duty at [facility] 24 hours a day by calling [phone]. Please take good care of yourself. Jorge Moura . Current Hospital Diet Patient's current hospital diet: AHA Diet (Heart Healthy) Discharge Diet Recommended Diet: AHA Diet (Heart Healthy) Procedures Procedures Performed: Heart catheterization showed stable mild-moderate blockage in one coronary artery. No change since 2012. Other arteries looked OK. Pending Studies Studies pending at discharge: no Laboratory Results Lipid Panel Test 10/11/16 05:36 Range/Units Triglycerides Level 134 0-150 mg/dl Cholesterol Level 122 0-200 mg/dl HDL Cholesterol 48 mg/dl Cholesterol/HDL Ratio 2.5 LDL Cholesterol, Calculated 47 mg/dl Medical Emergencies . Who to Call and When: Medical Emergencies: If at any time you feel your situation is an emergency, please call 911 immediately. . Non-Emergent Contact Non-Emergency issues call your: Primary Care Provider, Manufactured Buildings Repairer, Hospital Doctor . . "Provider Documentation" section prepared by Jorge Moura. . VTE Core Measure Inpt VTE Proph given/why not?: Enoxaparin (Lovenox)SQ
[2016-10-11 15:15] VITALS: BP 133/73; PULSE 59; TEMP 36.5; O2SAT 93
--- NOTE | 2016-10-11 18:22 | Discharge Summary ---
Discharge Summary Date of Service Oct 11, 2016. Discharge Summary Admission Date: Oct 10, 2016 at 17:09 Discharge Date: Oct 11, 2016 Discharge Disposition: Home Principal Diagnosis: chest pain- GA ruled out left bundle branch block . Secondary Diagnoses/Problems: Chronic and Resolved Medical Problems: (2) Clostridium difficile colitis Permanent Comment: x 2 Status: Resolved (3) Cystocele Permanent Comment: s/p repair Status: Resolved (4) Depression Status: Chronic (5) History of coronary artery disease Permanent Comment: cath 08/2012 - non obstructive disease Status: Chronic (6) Migraine Status: Chronic (7) Rectocele Permanent Comment: s/p repair Status: Resolved (8) Sleep apnea Status: Chronic (9) Traumatic perforation of large intestine Permanent Comment: during surgery for BSO Status: Resolved Surgical Problems: (1) H/O foot surgery Status: Chronic (2) H/O sinus surgery Status: Chronic (3) H/O: hysterectomy Status: Chronic (4) Hx of shoulder surgery Status: Chronic (5) Hx of tonsillectomy Status: Chronic (6) S/P BSO (status post bilateral salpingo-oophorectomy) Status: Chronic . Procedures: cardiac monitoring cardiac catheterization . Consultations: Cardiology . Medication Reconciliation New Medications: Fluoxetine Hcl (Pmdd) (Fluoxetine) 20 Mg Cap 20 MG PO DAILY, #30 CAP 5 Refills Ranitidine Hcl (Ranitidine Hcl) 300 Mg Cap 300 MG PO HS, #30 CAP 1 Refill Continued Medications: Amlodipine Besylate (Amlodipine Besylate) 5 Mg Tab 5 MG PO DAILY Ascorbic Acid (Ascorbic Acid) 500 Mg Tab 500 MG PO BID, TAB Aspirin (Aspirin Ec) 81 Mg Tab 81 MG PO DAILY Atorvastatin (Lipitor) 80 Mg Tab 80 MG PO HS Calcium Carbonate-Cholecalcife (Caltrate 600+D) 1 Tab Tab 1 TAB PO HS Fish Oil ([place]-3) 1 Ea Cap 2 CAP PO BID, CAP Gabapentin (Gabapentin) 300 Mg Cap 600 MG PO HS Lactobacillus Acidophilus (Lactinex) Tab 2 TABS PO QAM, TAB Lisinopril (Lisinopril) 5 Mg Tab 5 MG PO DAILY Meclizine Hcl (Meclizine Hcl) 25 Mg Tab 25 MG PO TID PRN for Dizziness or Vertigo, TAB Methenamine Mandelate (Methenamine Mandelate) 0.5 Gm Tab 1 GM PO BID Metoprolol Succinate (Toprol Xl) 25 Mg Tabcr 25 MG PO QAM Mometasone Furoate (Nasal) (Mometasone Furoate) 50 Mcg/Act Spr 1 SPRAY WAQAR DAILY Multiple Vitamins W/ Minerals (Centrum Silver Ultra Wome) 1 Tab Tab 1 TAB PO DAILY Discontinued Medications: Fluoxetine HCl (Fluoxetine HCl) 10 Mg Cap 10 MG PO DAILY Admission Information HPI (per Admitting provider): 66 YO female followed by Dr. Silva. History of non-obstructive coronary artery disease per cath 2012, hypertension, dyslipidemia, and other problems noted below. Experiencing exertional chest discomfort over past several days. Chest discomfort described as midsternal pressure. No radiation. Associated with dyspnea. No associated diaphoresis, nausea, vomiting. Occurring with moderate exertion. Relieved by rest. More severe episode to day. Came to ED for evaluation. CP relieved by SL nitro x 3. EKG demonstrated new LBBB. Taken to label maker; found to have stable 40-50% mid LAD stenosis. . Physical Exam (per Admitting): General Appearance: WD/WN, no apparent distress Head: normocephalic, atraumatic Eyes: normal inspection, PERRL, EOMI, sclerae normal ENT: normal ENT inspection, hearing grossly normal, pharynx normal Neck: supple, no adenopathy, thyroid normal, no JVD, trachea midline Respiratory/Chest: lungs clear, no respiratory distress, no accessory muscle use Cardiovascular: regular rate, rhythm, no edema, no gallop, no JVD, no murmur Abdomen/GI: normal bowel sounds, non tender, soft, no organomegaly, no pulsatile mass Extremities/Musculoskelatal: no calf tenderness, no pedal edema 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 Symptoms initially relieved by rest. CP in ED relieved by NTG. EKG demonstrated new LBBB. Cardiac cath demonstrated stable nonocclusive disease with 45-50% stenosis LAD. Low clinical suspicion for pulmonary embolism or aortic dissection. Symptoms do not appear to be related to musculoskeletal etiologies. Probable GE reflux in supine position morning of discharge. Has been under significant emotional stress lately. GERD Has taken both ranitidine and omeprazole in the past for GERD. Restart ranitidine at 300 mg HS x 1-2 month. Consider further evaluation (e.g, EGD) if symptoms do not improve. HYPERTENSION Continue metoprolol, amlodipine, lisinopril. DYSLIPIDEMIA LDL-c was 47. Continue atorvastatin. DEPRESSION Has been under significant emotional stress lately. Increased fluoxetine to 20 mg daily. VTE PROPHYLAXIS SQ enoxaparin. Ambulate. DISPOSITION Discharge to home. Family Medicine follow-up with Dr. Silva. . Discharge Instructions Date of Service Oct 11, 2016. Admission Reason for Admission: chest pain . Discharge Discharge Diagnosis / Problem: chest pain- no sign of heart attack Discharge Goals Goal(s): Decrease discomfort, Improve disease control Activity Recommendations Activity Limitations: resume your previous activity . Instructions / Follow-Up Instructions / Follow-Up FOLLOW-UP APPOINTMENTS: FAMILY MEDICINE 10/15/2016 11:00 AM Negro Silva MD CARDIOLOGY 01/01/2017 10:25 AM George Pyle, MEDICATION CHANGES: Increase fluoxetine (Prozac) to 20 mg daily for depression. Try ranitidine (Zantac) 300 mg at bedtime for 1-2 months for acid reflux. OTHER INSTRUCTIONS: Seek medical attention if you have: * chest pain or trouble breathing * abdominal pain, nausea, vomiting * diarrhea, dark stools or bloody stools * any unanswered questions or concerns Call 911 if symptoms are severe. Call if you have any questions or problems. My cell # is [phone]. You can also reach a [facility] hospitalist on duty at [facility] 24 hours a day by calling [phone]. Please take good care of yourself. Jorge Moura . Current Hospital Diet Patient's current hospital diet: AHA Diet (Heart Healthy) Discharge Diet Recommended Diet: AHA Diet (Heart Healthy) Procedures Procedures Performed: Heart catheterization showed stable mild-moderate blockage in one coronary artery. No change since 2012. Other arteries looked OK. Pending Studies Studies pending at discharge: no Laboratory Results Lipid Panel Test 10/11/16 05:36 Range/Units Triglycerides Level 134 0-150 mg/dl Cholesterol Level 122 0-200 mg/dl HDL Cholesterol 48 mg/dl Cholesterol/HDL Ratio 2.5 LDL Cholesterol, Calculated 47 mg/dl Medical Emergencies . Who to Call and When: Medical Emergencies: If at any time you feel your situation is an emergency, please call 911 immediately. . Non-Emergent Contact Non-Emergency issues call your: Primary Care Provider, Product Development Ecologist, Hospital Doctor . . "Provider Documentation" section prepared by Jorge Moura. . VTE Core Measure Inpt VTE Proph given/why not?: Enoxaparin (Lovenox)SQ Additional Copies To Negro Silva M.D.
== END 2016-10-11 14:40 | disposition home or self-care (01) ==
LOC: C.EDB 14:28 → EDBEDREQSVC 16:06 → ENRESERV 16:07 → C.2T 17:09
PROVIDERS: ADMIT Hospitalist; ATTEND Hospitalist
DX: I25.10 Atherosclerotic heart disease of native coronary artery without angina pectoris (principal); I10 Essential (primary) hypertension; K21.9 Gastro-esophageal reflux disease without esophagitis; E78.5 Hyperlipidemia, unspecified; F32.9 Major depressive disorder, single episode, unspecified; G47.30 Sleep apnea, unspecified; Z83.3 Family history of diabetes mellitus; Z82.49 Family history of ischemic heart disease and other diseases of the circulatory system; Z79.82 Long term (current) use of aspirin; Z79.899 Other long term (current) drug therapy

== ENCOUNTER → 2017-01-03 | Outpatient (CLI) | payer BC ==
[~2017-01-03] MED LIST changes: -ANT25 PO; +ASCO500T16 PO; +ASPI81TA28 PO; +ATOR-26 PO; -BECL1AER5 NAE; +CALC-354 PO; +FLUO20CA20 PO; +GABA1CAP4 PO; +LCTX PO; -LPT40 PO; +LSN5 PO; +MECL1TAB42 PO; +METH-467 PO; +METO25TA3 PO; +MOME6000 NAE; +MULT-614 PO; -NITR100C6 PO; +NRV/5 PO; -PRAM0.129 PO; +RANI300C PO
--- NOTE | 2017-01-03 15:38 | MAMMOGRAPHY REPORT ---
BILATERAL DIGITAL SCREENING MAMMOGRAM TOMOSYNTHESIS WITH CAD: 01/03/2017 CLINICAL HISTORY: Routine screening. TECHNIQUE: Breast tomosynthesis in addition to standard 2D mammography was performed. Current study was also evaluated with a Computer Aided Detection (CAD) system. COMPARISON: Comparison is made to exams dated: 08/30/2014 mammogram, 09/01/2015 mammogram, 08/16/2013 m ammogram, 08/13/2012 mammogram, 08/08/2011 mammogram, and 07/31/2010 mammogram - [facility] enter. BREAST COMPOSITION: The tissue of both breasts is heterogeneously dense, which may obscure small mas ses. FINDINGS: No suspicious masses, calcifications, or areas of architectural distortion are noted in ei ther breast. There has been no significant interval change compared to prior exams. Bilateral asymme tries are stable. A linear scar marker denotes a scar on the right superior breast. IMPRESSION: ACR BI-RADS CATEGORY 2: BENIGN There is no mammographic evidence of malignancy. A 1 year screening mammogram is recommended. The pa tient will receive written notification of the results. Approximately 10% of breast cancers are not detected with mammography. A negative mammographic report should not delay biopsy if a clinically suggestive mass is present. Rosalee Childress M.D. ah/:01/03/2017 12:35:46 Shear Scrapman: Tammi STEVENS(Shahid)(M), [facility] letter sent: Normal 1/2 BI-RADS Code: ACR BI-RADS Category 2: Benign
== END | disposition home or self-care (01) ==
LOC: C.MAMM 09:57
PROVIDERS: ATTEND Family Medicine
DX: Z12.31 Encounter for screening mammogram for malignant neoplasm of breast (principal)

== ENCOUNTER 2017-06-18 11:09 | Day surgery (SDC) | payer OTHER, BC ==
[2017-06-16 09:43] VITALS: Ht 172.7 cm; Wt 104.5 kg
[~2017-06-18] VITALS: Ht 172.7 cm; Wt 104.5 kg
--- NOTE | 2017-06-18 08:05 | History and Physical ---
History & Physical Date June 18, 2017. Chief Complaint Patient presents a 66-year-old white female with ongoing points of shoulder pain no response to conservative management including physical therapy anti- inflammatories subacromial injections she presents with an MRI and clinical examination consistent with torn rotator cuff she has weakness to abduction external rotation unable to lift and elevate her arm consistent with a supraspinatus tear she also has radiographic findings consistent with AC joint DJD subchondral osteophyte formation and sclerosis of the AC joint with a type II-III acromion History of Present Illness The patient is a 66 year old female with complaints of ongoing right shoulder pain no response to conservative therapy including injections physical therapy anti-inflammatories relative rest Past Medical/Surgical History Medical Problems: (1) Bacteremia (2) Clostridium difficile colitis (3) Cystocele (4) Depression (5) History of coronary artery disease (6) Migraine (7) Rectocele (8) Sleep apnea (9) Traumatic perforation of large intestine Surgical Problems: (1) H/O foot surgery (2) H/O sinus surgery (3) H/O: hysterectomy (4) Hx of shoulder surgery (5) Hx of tonsillectomy (6) S/P BSO (status post bilateral salpingo-oophorectomy) Additional History Hepatic Disease: No Endocrine Disorder: No Kidney Disease: No Hypertension: Yes Heart Disease: No Bleeding Tendencies: No Infectious Diseases: No Allergies Coded Allergies: Clavulanic Acid (Verified Allergy, Intermediate, RASH, 06/16/17) Erythromycin (Verified Allergy, Intermediate, RASH, 06/16/17) Penicillins (Verified Allergy, Intermediate, RASH, 06/16/17) CAN TAKE AMOXICILLIN Tetracycline (Verified Allergy, Intermediate, RASH, 06/16/17) Sulfa Drugs (Verified Allergy, Unknown, RASH, 06/16/17) Home Medications Scheduled Amlodipine Besylate (Amlodipine Besylate), 5 MG PO QAM Ascorbic Acid (Ascorbic Acid), 500 MG PO QAM Aspirin (Aspirin Ec), 81 MG PO QAM Atorvastatin (Lipitor), 80 MG PO HS Azelastine Hcl-Fluticasone Pro (Dymista), 1 SPRY WAQAR QAM Calcium Carbonate-Cholecalcife (Caltrate 600+D), 1 TAB PO HS Fish Oil ([place]-3), 2 CAP PO BID Fluoxetine (Prozac), 20 MG PO QAM Gabapentin (Gabapentin), 600 MG PO HS Lactobacillus Acidophilus (Lactinex), 2 TABS PO QAM Lisinopril (Lisinopril), 5 MG PO QAM Methenamine Mandelate (Methenamine Mandelate), 1 GM PO BID Metoprolol Succinate (Toprol Xl), 25 MG PO QAM Multiple Vitamins W/ Minerals (Centrum Silver Ultra [place]ome), 1 TAB PO QAM Scheduled PRN Meclizine Hcl (Meclizine Hcl), 25 MG PO TID PRN for Dizziness or Vertigo Ranitidine Hcl (Zantac), 300 MG PO UD PRN for prn Physical Examination Skin: warm/dry, no rash Eyes: normal inspection, EOMI, sclerae normal ENT: normal ENT inspection, pharynx normal Head: normocephalic, atraumatic Neck: supple, no adenopathy, trachea midline Respiratory/Chest: lungs clear, normal breath sounds, no respiratory distress Cardiovascular: regular rate, rhythm, no edema, no murmur Abdomen / GI: normal bowel sounds, non tender Back: normal inspection Extremities: normal inspection, normal range of motion, + pertinent finding ( Shoulder exam includes crepitation with weakness to the supraspinatus muscle positive Speed and Yergason test with palpable crepitation at the AC joint) Neurologic/Psych: no motor/sensory deficits, alert, normal reflexes, oriented x 3 Diagnosis Full-thickness rotator cuff tear 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
--- NOTE | 2017-06-18 10:28 | History & Physical Bridge Note ---
H&P Re-Evaluation Bridge Note: I have examined the patient, reviewed the History & Physical and in the interval since the performance of the History & Physical I have noted the following changes of clinical significance: No changes noted
[~2017-06-18 11:09] MED LIST changes: +ATROPINE SULFATE 0.1 MG/ML 5ML SYR IV PRN; +AZEL30SP NAE; +EpHEDrine SULFATE INJ 50 MG/ML AMP IV PRN; +FENTANYL CITRATE INJ 50 MCG/1 ML 2 ML VIAL IV PRN; -FLUO20CA20 PO; +FLUO20CA35 PO; +GABA-1219 PO; -GABA1CAP4 PO; +HYDROmorphone INJ 1 MG/ML SYR IV PRN; +LABETALOL HCL IV 5 MG/ML 20ML IV PRN; +LACTATED RINGER'S 1000ML 1,000 ML IV SCH; -METO25TA3 PO; +METO25TA4 PO; -MOME6000 NAE; +ONDANSETRON INJ 2 MG/ML 2 ML VIAL IV PRN; +PHENYLEPHRINE 100MCG/ML 5ML SYR IV PRN; +PROMETHAZINE HCL INJ 12.5 MG in SODIUM CHLORIDE 0.9% 50ML 50 ML IV PRN; -RANI300C PO; +RANI300T2 PO; +ROPIVACAINE 0.5% 5 MG/ML 30 ML VIAL ONE
[2017-06-18] MEDS ORDERED: PRLSR20 PO (11:44)
[2017-06-18 11:50] VITALS: BP 148/72; PULSE 71; TEMP 36.7; O2SAT 96
[2017-06-18 11:57] LABS: HEMATOCRIT 40.9 % (37-47); HEMOGLOBIN 14.1 g/dL (12.0-16.0); MEAN CELL VOLUME 89.3 fL (80-100); MEAN CORPUSCULAR HEMOGLOBIN 30.8 pg (25-34); MEAN PLATELET VOLUME 8.9 fL (7.4-10.4); PLATELET COUNT 204 K/uL (130-400); RED CELL DISTRIBUTION WIDTH CV 12.9 % (11.5-14.5); RED CELL DISTRIBUTION WIDTH SD 41.5 fL (36.4-46.3); WHITE BLOOD COUNT 6.62 K/uL (4.8-10.8)
[2017-06-18 12:09] LABS: PTT PATIENT 25.9 SECONDS (21.0-31.0)
[2017-06-18 12:14] LABS: MEAN CORPUSCULAR HGB CONC 34.5 g/dl (32-36)
[2017-06-18 12:23] LABS: CALCIUM 9.3 mg/dl (8.5-10.1); CREATININE 0.76 mg/dl (0.60-1.20); POTASSIUM 3.9 mmol/L (3.5-5.1)
[2017-06-18] MEDS ORDERED: LIDOCAINE HCL 2% 2 ML VIAL (20MG/ML) ONE (12:25)
[2017-06-18] MEDS ORDERED: DEXAMETHASONE SOD INJ 4 MG/ML VIAL ONE (12:25)
[2017-06-18] MEDS ORDERED: NEOSTIGMINE METHYLSULFATE 5 MG/5 ML SYR ONE (12:25)
[2017-06-18] MEDS ORDERED: GLYCOPYRROLATE INJ 0.2 MG/ML VIAL ONE ×2 (12:25→14:32)
[2017-06-18] MEDS ORDERED: ONDANSETRON INJ 2 MG/ML 2 ML VIAL ONE (12:25)
[2017-06-18] MEDS ORDERED: PROPOFOL IV EMULSION 10 MG/ML 20 ML VIAL ONE (12:25)
[2017-06-18] MEDS ORDERED: FENTANYL CITRATE INJ 50 MCG/1 ML 2 ML VIAL ONE (12:26)
[2017-06-18] MEDS ORDERED: MIDAZOLAM HCL 1 MG/ML 2ML VIAL ONE (12:26)
[2017-06-18] MEDS ORDERED: CLINDAMYCIN 600 MG/54 ML D5W IV ONE (12:49)
[2017-06-18] MEDS ORDERED: CLINDAMYCIN 600 MG/54 ML D5W IV SCH (13:30)
[2017-06-18] MEDS ORDERED: NURSING VERBAL MED ORDER ONE (13:30)
[2017-06-18] MEDS ORDERED: SCOPOLAMINE 1.5 MG TDSY TD ONE (13:36)
[2017-06-18] MEDS ORDERED: SODIUM CHLORIDE 0.9% INJ 10 ML VIAL ONE (14:32)
[2017-06-18] MEDS ORDERED: EpHEDrine SULFATE INJ 50 MG/ML AMP ONE (14:32)
[2017-06-18] MEDS ORDERED: PHENYLEPHRINE 100MCG/ML 5ML SYR ONE (14:32)
--- NOTE | 2017-06-18 15:03 | [facility] Operative Report ---
Operative Report Operative Date June 18, 2017. Pre-Operative Diagnosis Full-thickness rotator cuff tear acromial clavicular joint, degenerative joint disease impingement syndrome right shoulder Post-Operative Diagnosis Full-thickness tear rotator cuff right shoulder 70% tear biceps tendon tear anterior labrum AC joint DJD impingement syndrome Procedure(s) Performed Arthroscopy with rotator cuff repair utilizing double row repair 4.5 helical oil 4.5 footprint anchor distal clavicle excision acromioplasty biceps tenodesis Surgeon Dr. French Structural Iron Worker Surgeon(s) Ebenezer Martinez PA-C Estimated Blood Loss 5cc Findings Patient does have evidence of full-thickness rotator cuff tear approximately 70 % tear of the biceps tendon with longitudinal splitting of the fibers anterior labral fraying and tearing as well as AC joint DJD with eburnated bone and large anterior-inferior acromion type III Specimens none Drains None Anesthesia Type General Complication(s) none Disposition Recovery Room / PACU Indications Patient presents after failing attempts at conservative management for full- thickness rotator cuff tear right shoulder the above findings were noted to patient full-thickness rotator cuff tear weakness with abduction palpable crepitation pain at night was no response to conservative management presents for rotator cuff repair as well as acromioplasty distal clavicle excision and biceps tenodesis Description of Procedure After proper prepping and draping the right upper extremity the right shoulder posterior portal was greater scop examination and intra-articular portion joint will be evidence of tearing fraying of the anterior labrum which is all debrided back to stable margin the biceps tendon was then evidence of marketed fraying throughout the entire intra-articular portion of the tendon this is all debrided back to stable margin for subsequent later tenodesis rotator cuff tear was measured 2 x 2 centimeters was surgically debrided to stable margin anterior for acromioplasty was performed as well as a distal clavicle excision was performed the acromion was converted from a type III to a type I 10 mm of distal clavicle were excised the wound was thoroughly irrigated to remove lavage subsequently utilizing to 4.5 helical anchors rotator cuff repair back to bed of bleeding bone and subsequently a 5 4.5 footprint anchor was used to fix the sutures for a second point of anchor the rotator cuff repair being complete note the biceps tendon just the cyst was done in soft tissue fashion utilizing footprint anchor as well as the 4.5 helical the wound was irrigated with copious loss of sterile saline solution particular matter debris was removed removed skin portals closed with 4-0 nylon sterile compression dressing was placed patient taken recovery in stable condition please note Ebenezer STANTON was necessary for prepping draping suture management and wound closure I attest to the content of the Intraoperative Record and any orders documented therein. Any exceptions are noted below.
[2017-06-18] MEDS ORDERED: SODIUM CHLORIDE 0.9% 1000ML 1,000 ML IV SCH (15:07)
--- NOTE | 2017-06-18 15:09 | Discharge Instructions ---
Discharge Instructions Date of Service June 18, 2017. Visit Reason for Visit: Sprain Of Right Rotator Cuff Capsule, Subsequent E Discharge Discharge Diagnosis / Problem: right shoulder rotator cuff repair Discharge Goals Goal(s): Decrease discomfort, Improve function, Increase independence Activity Recommendations Activity Limitations: as noted below Anesthesia . Post Anesthesia Instructions: If you have had General Anesthesia or IV Sedation: * Do not drive today. * Resume driving when surgeon permits. * Do not make important decisions or sign legal documents today. * Call surgeon for: 1. Temperature elevations greater than 101 degrees F. 2. Uncontrollable pain. 3. Excessive bleeding. 4. Persistent nausea and vomiting. 5. Medication intolerance (nausea, vomiting or rash). * For nausea and vomiting use only clear liquids such as: tea, soda, bouillon until nausea subsides, then gradually increase diet as tolerated. * If you have any concerns or questions, call your surgeon's office. If physician is unavailable and it is an emergency, call 911 or go to the nearest emergency room. . Instructions / Follow-Up Instructions / Follow-Up [facility] DISCHARGE INSTRUCTIONS: ROTATOR CUFF REPAIR SELF CARE INSTRUCTIONS A. You are permitted to loosen your sling/immobilizer to move your elbow, wrist , and hand to prevent stiffness. You should use your well arm (good arm) to assist the operated extremity when trying to raise the arm away from the body, hygiene purposes. Do NOT actively try to use/engage your shoulder muscles in operative arm at this time. You should NOT do overhead activity, lifting, or attempt to reach behind your back. B. You may/may not be instructed to start Physical Therapy upon discharge depending upon the size and difficulty of the repair. You will be provided a prescription for therapy with specific restrictions, if needed, at time of discharge. C. At 48 hours post-operatively, you may change your dressing. (Leave white steri-strips intact if present). Use band-aids and change daily. You are allowed to shower at this time and get the incision area wet, but DO NOT soak or submerge incision area in water. (No baths, swimming pools, hot tubs) D. Do NOT apply soap or any ointment/lotions directly over incision. E. You may use ice as needed to operative shoulder SPECIAL CARE INSTRUCTIONS: VERY IMPORTANT TO READ AND REVIEW A. There are a few signs you need to watch for after you are home. Call [facility] at [phone] if you experience any of the following: a. Increased severe shoulder pain. Some pain is expected especially when you exercise b. Increased swelling in your shoulder or arm; pain or swelling in either upper extremity. (Note: swelling and stiffness is normal and expected for several weeks post op, depending on type of shoulder surgery you had). c. Any fluid or drainage from the incision; redness of the incision. d. Shortness of breath or chest pain. B. Please call [facility] at [phone] if you have any questions or concerns about your operation or recovery. C. Call your physician if: a. Temperature is greater than 101 degrees (F). b. Pain is not relieved by prescribed pain medications. c. Increase drainage or redness from incision. d. Unanswered questions or concerns. D. Pain Medication: a. You will be prescribed pain medication upon discharge that should last till your first post-operative appointment. b. If you experience nausea and/or skin rash, discontinue this medication and contact our office for an alternative medication. c. Caution- narcotic pain medication can cause constipation. FOLLOW UP VISIT: Please call [facility] at [phone] to schedule a follow up appointment 10-14 days from your surgery date. Diet Recommendations Recommended Home Diet: resume previous diet Procedures Procedures Performed: Arthroscopy with rotator cuff repair utilizing double row repair 4.5 helical oil 4.5 footprint anchor distal clavicle excision acromioplasty biceps tenodesis Pending Studies Studies pending at discharge: no Medical Emergencies . Who to Call and When: Medical Emergencies: If at any time you feel your situation is an emergency, please call 911 immediately. . Non-Emergent Contact Non-Emergency issues call your: Primary Care Provider, Surgeon . . "Provider Documentation" section prepared by Ebenezer Martinez. . [place] Drug Monitoring Program Search Results: patient reviewed within database, no issues identified
[2017-06-18] MEDS ORDERED: ONDANSETRON INJ 2 MG/ML 2 ML VIAL IV PRN (15:15)
[2017-06-18] MEDS ORDERED: OXYCODONE/ACETAMINOPHEN 5-325 TAB PO PRN ×2 (15:15)
[2017-06-18] MEDS ORDERED: OXYC-57 PO (16:26)
--- NOTE | 2017-06-18 16:30 | Anesthesiology Progress Note ---
Anesthesia Post Op Note Date & Time June 18, 2017 at 16:29 Vital Signs Pain Intensity: 0 Vital Signs Past 12 Hours Date Time Temp Pulse Resp B/P (MAP) Pulse Ox O2 Delivery O2 Flow Rate FiO2 06/18/17 16:15 36.6 66 20 127/74 96 Room Air 06/18/17 16:05 72 24 157/94 95 Room Air 06/18/17 15:55 70 24 160/74 95 Room Air 06/18/17 15:45 36.2 72 20 156/72 96 Room Air 06/18/17 15:35 74 20 163/75 100 Mask 10 06/18/17 15:25 78 20 165/82 100 Mask 10 06/18/17 15:19 36.0 80 16 181/82 98 Mask 10 06/18/17 11:50 36.7 71 18 148/72 (97) 96 Room Air Notes Mental Status: alert / awake / arousable, participated in evaluation Pt Amnestic to Procedure: Yes Nausea / Vomiting: adequately controlled Pain: adequately controlled Airway Patency, RR, SpO2: stable & adequate BP & HR: stable & adequate Hydration State: stable & adequate Anesthetic Complications: no major complications apparent
[2017-06-18 16:40] VITALS: BP 145/64; PULSE 66; TEMP 36.1; O2SAT 92
[2017-06-18 17:17] VITALS: BP 136/64; PULSE 65; TEMP 36.5; O2SAT 93
== END 2017-06-18 17:48 | disposition home or self-care (01) ==
LOC: C.ACU 11:09
PROVIDERS: ATTEND Orthopaedic Surgery
DX: M75.101 Unspecified rotator cuff tear or rupture of right shoulder, not specified as traumatic (principal); M75.41 Impingement syndrome of right shoulder; M19.011 Primary osteoarthritis, right shoulder; G47.33 Obstructive sleep apnea (adult) (pediatric); I25.10 Atherosclerotic heart disease of native coronary artery without angina pectoris; I10 Essential (primary) hypertension; E78.5 Hyperlipidemia, unspecified; K21.9 Gastro-esophageal reflux disease without esophagitis; Z79.82 Long term (current) use of aspirin; Z88.2 Allergy status to sulfonamides; Z88.0 Allergy status to penicillin; Z88.1 Allergy status to other antibiotic agents

== ENCOUNTER 2020-03-06 22:29 | Observation (INO) ==
[2020-03-06] MEDS ORDERED: ASPIRIN CHEW 324 MG PO STA (22:53)
[2020-03-06] MEDS ORDERED: NITROGLYCERIN SL 0.4 MG/TAB TAB SL PRN (22:53)
[2020-03-06 23:08] LABS: Basophils # (auto) 0.05 K/uL (0-0.2); Basophils % (auto) 0.6 %; Eosinophils % (auto) 5.9 %; Hematocrit (blood only) 40.8 % (37-47); Hemoglobin 13.5 g/dL (12.0-16.0); Immature Granulocytes # (auto) 0.04 K/uL (0.00-0.02); Immature Granulocytes % (auto) 0.5 %; Lymphocytes # (auto) 2.46 K/uL (1.2-3.4); Lymphocytes % (auto) 28.8 %; Mean Corpuscular Hemoglobin 30.2 pg (25-34); Mean Corpuscular Hgb Conc 33.1 g/dL (32-36); Mean Corpuscular Volume 91.3 fL (80-100); Mean Platelet Volume 9.4 fL (7.4-10.4); Monocytes # (auto) 0.81 K/uL (0.11-0.59); Monocytes % (auto) 9.5 %; Neutrophils # (auto) 4.67 K/uL (1.4-6.5); Neutrophils % (auto) 54.7 %; Platelet Count 212 K/uL (130-400); RDW Coefficient of Variation 13.7 % (11.5-14.5); RDW Standard Deviation 45.2 fL (36.4-46.3); Red Blood Count 4.47 M/uL (4.2-5.4); White Blood Count 8.53 K/uL (4.8-10.8)
[2020-03-06 23:29] LABS: Alanine Aminotransferase 33 U/L (12-78); Albumin Level 3.6 gm/dl (3.4-5.0); Aspartate Aminotransferase 22 U/L (15-37); BUN Creatinine Ratio 33.5 (10-20); Blood Urea Nitrogen 27 mg/dl (7-18); Calcium 9.3 mg/dl (8.5-10.1); Carbon Dioxide 26 mmol/L (21-32); Chloride 111 mmol/L (98-107); Creatinine Clr Calc Pharmacy 81.2 ml/min; Est GFR (African American) 87.1; Est GFR (Non-African American) 75.2; Glucose 101 mg/dl (70-99); Lipase 137 U/L (73-393); Potassium 3.8 mmol/L (3.5-5.1); Sodium 143 mmol/L (136-145)
[2020-03-06 23:34] LABS: Alkaline Phosphatase 78 U/L (45-117); Bilirubin,Total 0.5 mg/dl (0.2-1); Globulin 3.7 gm/dl (2.5-4.0); Total Protein 7.3 gm/dl (6.4-8.2); Troponin I < 0.015 ng/ml (0-0.045)
[2020-03-06] MEDS ORDERED: NITROGLYCERIN 2% OINTMENT 30GM TUBE EXT STA (23:59)
--- NOTE | 2020-03-07 00:12 | Emergency Department Note ---
Impression & Plan Chest pain ED Provider Note INFORMANT: Patient ED PROVIDER(S): Jorge Baldwin MD CHIEF COMPLAINT: Chest pain PLAN: Disposition: Admit Condition: Good Outpatient prescription management: none Referral: None MEDICAL DECISION MAKING: Patient presented with intermittent chest pain. She had pain that was quite severe prior to arrival and then got better. Aspirin and nitroglycerin were ordered after initial physical. The patient's ECG showed a left bundle branch block and a left bundle was found on a prior ECG. The patient had resolution of pain before the nitroglycerin. This was held. She then had some mild symptoms of pain coming back and Nitropaste was applied. Chest x-ray did not show any significant findings. The patient's CBC, chemistry panel and troponin were negative. The patient's D-dimer and coags were hemolyzed. These were redrawn. Consultation was made with Dr[facility] Khurram Hardy, [facility]. Patient was evaluated in ER for further management. Triage Nursing notes reviewed and agree them. Vital Signs: reviewed and remarkable for hypertension Differential diagnosis: Cardiac ischemia, aortic dissection, pulmonary embolism, pneumothorax, pneumonia, pericarditis, myocarditis, esophageal rupture, GERD, cholecystitis, pancreatitis, musculoskeletal, as well as other pathologies. Diagnostics interpreted by me: ECG: Twelve-lead ECG reveals a sinus rhythm with a first-degree AV block at 82 bpm. There is left axis deviation and a left bundle branch block. When compared to May [id number] the left bundle branch block is new and inferior T wave inversions are resolved. When compared to May 272018 the left bundle branch block is old. Cardiac Monitoring: Cardiac monitoring ordered by me: The patient was placed on continuous cardiac monitoring and observed. It revealed a normal sinus rhythm at 83 beats per minute without ectopy or evidence of dysrhythmia. Imaging studies: Chest x-ray. Findings: A chest x-ray was performed and revealed no pneumothorax, effusion, infiltrate, pulmonary edema, free air under the diaphragm, or wide mediastinum. Impression: No acute disease. HPI: The patient is a 69 year old female who presents to the Emergency Room with complaints of substernal chest pain. This started last night and is inte rmittent. The patient also notes the following associated symptoms, pain in the left shoulder. The patient has found no relieving factors. Current pain is rated as 5/10. Pain prior to arrival was a 10. She notes a history of coronary artery disease. No stents. Pt denies LOC, headache, fevers, chills, diaphoresis, visual changes, neck pain,breathing difficulties, nausea, vomiting, abdominal pain, back pain, melena, hematochezia, urinary symptoms, numbness, weakness, lymphadenopathy, rash, or other complaints. ROS: See above HPI for pertinent positives & negatives. A total of 10 systems reviewed and were otherwise negative. PAST MEDICAL HISTORY:See Below , CAD PAST SURGICAL HISTORY:See Below, FAMILY HISTORY:See Below SOCIAL HISTORY:See Below, HOME MEDICATIONS:See Below ALLERGIES:See Below VITALS:See Below PHYSICAL EXAMINATION: GENERAL: Awake, alert, well-appearing, in no distress HENT: Normocephalic, atraumatic. Oropharynx unremarkable. EYES: Normal conjunctiva. Sclera non-icteric. NECK: Inspection normal. Non-tender. Supple. No nuchal rigidity. FROM. No masses. RESPIRATORY: Clear to auscultation. No wheezes. No rales. Normal respiratory effort. CARDIAC: Normal rate. Normal rhythm. No murmurs. No rubs. Extremities warm and well perfused. Pulses equal. No JVD. GI: Soft, non-distended. No tenderness to palpation. No rebound or guarding. No masses. RECTAL: Deferred. MUSCULOSKELETAL: Atraumatic. Chest examination reveals no tenderness. The back is symmetrical on inspection without obvious abnormality. There is no CVA tenderness to palpation. No joint edema. LOWER EXTREMITIES: Calves are equal size bilaterally and non-tender. No edema. No discoloration. NEURO: Normal sensorium. No sensory or motor deficits noted. SKIN: No rash or jaundice noted. Jorge Baldwin MD Past Med/Surg History Medical History (Updated 03/07/20 @ 00:07 by Jorge Balwdin MD) CAD (coronary atherosclerotic disease) History of left bundle branch block (LBBB) HLD (hyperlipidemia) MORE on CPAP Rectocele "s/p repair" Traumatic perforation of large intestine "during surgery for BSO" Surgical History (Updated 12/01/19 @ 13:20 by Joelle Erazo) H/O foot surgery RIGHT H/O sinus surgery H/O: hysterectomy History of back surgery History of bladder surgery History of breast lump/mass excision benign tumor History of colon surgery repair of bowel perforation History of excision of lesion basal cell removed from shoulder History of eye surgery History of surgery tailbone (unspecified) History of surgery ovarian surgery Hx of shoulder surgery bladder Hx of tonsillectomy S/P BSO (status post bilateral salpingo-oophorectomy) S/P myringotomy with insertion of tube Family History (Updated 12/01/19 @ 13:06 by Joelle Erazo) Brother Hearing loss Cancer Heart disease Mother Hypertension Heart disease Father Heart disease Social History (Updated 12/01/19 @ 13:04 by Joelle Erazo) Smoking Status: Never smoker Hx Alcohol Use: No Hx Substance Use: No Preferred Language: [place] marital status: current occupational status: retired How many Children do You have: 2 Feels Safe at Home: Yes Allergies Allergies Allergy/AdvReac Type Severity Reaction Status Date / Time clavulanic acid Allergy Intermediate RASH Verified 03/06/20 23:54 erythromycin base Allergy Intermediate RASH Verified 03/06/20 23:54 Penicillins Allergy Intermediate RASH Verified 03/06/20 23:54 tetracycline Allergy Intermediate RASH Verified 03/06/20 23:54 Sulfa (Sulfonamide Allergy Unknown RASH Verified 03/06/20 23:54 Antibiotics) Home Meds Home Medications Medication Instructions Recorded Confirmed amlodipine 5 mg PO QAM 11/17/17 03/06/20 aspirin [Aspirin Low Dose] 81 mg PO QAM 11/17/17 03/06/20 atorvastatin 80 mg PO HS 11/17/17 03/06/20 calcium carbonate-vitamin D3 1 tab PO HS 11/17/17 03/06/20 [Calcium 600 + D(3)] gabapentin 600 mg PO HS 11/17/17 03/06/20 lisinopril 5 mg PO QAM 11/17/17 03/06/20 methenamine hippurate 1 g PO BID 11/17/17 03/06/20 metoprolol succinate [Toprol XL] 25 mg PO QAM 11/17/17 03/06/20 arhcxfie-ozm-FA-lycopen-lutein 1 tab PO QAM 11/17/17 03/06/20 [Centrum Silver] omega 7-ijg-rzi-fish oil [Fish Oil] 2 cap PO BID 11/17/17 03/06/20 omeprazole 20 mg PO BID PRN 11/17/17 03/06/20 fluoxetine 20 mg PO DAILY 03/06/20 03/06/20 Results & Data (ED) Vital Signs Vital Signs - 24 hr 03/06/20 22:33 03/06/20 22:48 03/06/20 23:00 Temperature 36.6 C Temperature Source Temporal Artery Scan Pulse Rate 87 Pulse Rate [Apical] 83 Pulse Strength Normal Respiratory Rate 18 24 Respiratory Effort / Characteristics Non-Labored Spontaneous Non-Labored Spontaneous Respiratory Depth Normal Normal Respiratory Pattern Regular Blood Pressure 156/75 H Blood Pressure [Right Arm] 154/85 H Blood Pressure Mean 102 Blood Pressure Mean [Right Arm] 108 Blood Pressure Position Lying Pulse Oximetry 96 98 97 Oxygen Delivery Method Room Air Room Air Room Air Sepsis Recent Fever Within 48 Hours No Sepsis New/Unexplained Change in Mental Status No Sepsis Action Taken by Nursing No Action Required Laboratory Data Result diagrams: 03/06/20 22:54 03/06/20 22:54 Lab Results 03/06/20 03/06/20 03/06/20 Range/Units 22:54 22:54 22:54 WBC 8.53 (4.8-10.8) K/uL RBC 4.47 (4.2-5.4) M/uL Hgb 13.5 (12.0-16.0) g/dL Hct 40.8 (37-47) % MCV 91.3 (80-100) fL MCH 30.2 (25-34) pg MCHC 33.1 (32-36) g/dL RDW Std Deviation 45.2 (36.4-46.3) fL RDW Coeff of Meggan 13.7 (11.5-14.5) % Plt Count 212 (130-400) K/uL MPV 9.4 (7.4-10.4) fL Immature Gran % (Auto) 0.5 % Neut % (Auto) 54.7 % Lymph % (Auto) 28.8 % [place] % (Auto) 9.5 % Eos % (Auto) 5.9 % Baso % (Auto) 0.6 % Neut # (Auto) 4.67 (1.4-6.5) K/uL Lymph # (Auto) 2.46 (1.2-3.4) K/uL [place] # (Auto) 0.81 H (0.11-0.59) K/uL Eos # (Auto) 0.50 (0-0.5) K/uL Baso # (Auto) 0.05 (0-0.2) K/uL Immature Gran # (Auto) 0.04 H (0.00-0.02) K/uL PT Cancelled INR Cancelled APTT Cancelled PTT Ratio Cancelled D-Dimer Cancelled Sodium 143 (136-145) mmol/L Potassium 3.8 (3.5-5.1) mmol/L Chloride 111 H (98-107) mmol/L Carbon Dioxide 26 (21-32) mmol/L Anion Gap 6.0 (3-11) BUN 27 H (7-18) mg/dl Creatinine 0.81 (0.6-1.2) mg/dl Est Cr Clr Drug Dosing 81.2 ml/min Est GFR ( Amer) 87.1 Est GFR (Non-Af Amer) 75.2 BUN/Creatinine Ratio 33.5 H (10-20) Glucose 101 H (70-99) mg/dl Calcium 9.3 (8.5-10.1) mg/dl Total Bilirubin 0.5 (0.2-1) mg/dl AST 22 (15-37) U/L ALT 33 (12-78) U/L Alkaline Phosphatase 78 (45-117) U/L Troponin I < 0.015 (0-0.045) ng/ml Total Protein 7.3 (6.4-8.2) gm/dl Albumin 3.6 (3.4-5.0) gm/dl Globulin 3.7 (2.5-4.0) gm/dl Albumin/Globulin Ratio 1.0 (0.9-2) Lipase 137 (73-393) U/L Administered Medications Discontinued Medications Aspirin (Aspirin Chew 324 Mg) 324 mg PO NOW STA Stop: 03/06/20 22:54 Last Admin: 03/06/20 22:58 Dose: 324 mg Documented by: [id number] Discharge Plan Visit Data Chief Complaint: Chest Pain Stated Complaint: CHEST PAIN ED Provider: Jorge Baldwin Discharge Problem: Chest pain Forms Stand Alone Forms: My [facility] Prescriptions Prescriptions: No Action gabapentin 300 mg capsule 600 mg PO HS RF: 0 atorvastatin 80 mg tablet 80 mg PO HS RF: 0 amlodipine 5 mg tablet 5 mg PO QAM RF: 0 aspirin [Aspirin Low Dose] 81 mg Tablet,Delayed Release (Dr/Ec) 81 mg PO QAM RF: 0 methenamine hippurate 1 gram tablet 1 g PO BID RF: 0 omeprazole 20 mg capsule,delayed release(DR/EC) 20 mg PO BID PRN (Reason: Gi Upset) RF: 0 lisinopril 5 mg tablet 5 mg PO QAM RF: 0 metoprolol succinate [Toprol XL] 25 mg tablet extended release 24 hr 25 mg PO QAM RF: 0 Centrum Silver 0.4-300-250 mg-mcg-mcg Tablet 1 tab PO QAM RF: 0 Calcium 600 + D(3) 600 mg calcium- 200 unit Capsule 1 tab PO HS RF: 0 omega 4-lza-iwk-fish oil [Fish Oil] 1,000 mg (120 mg-180 mg) Capsule 2 cap PO BID RF: 0 fluoxetine 20 mg capsule 20 mg PO DAILY RF: 0
[2020-03-07 00:47] LABS: D Dimer 410 ug/L FEU (0-500); INR 1.1 (0.9-1.1); Partial Thromboplastin Time 28.5 Seconds (21.0-31.0); Prothrombin Time 11.2 Seconds (9.0-12.0)
--- NOTE | 2020-03-07 01:56 | History & Physical Report ---
Date of Service March 07, 2020 Assessment & Plan (1) Chest pain: Musculoskeletal component with reproducibility on examination ? Uncontrolled hypertension, lisinopril stopped by supervisor agricultural education last week owing to dizziness complaints Rule out ACS given relief with nitroglycerin, hx CAD as per records chronic LBBB hyperlipidemia on statin Rx MORE on CPAP depression at baseline recurrent UTIs on chronic Macrodantin Rx OBS PCU Analgesia Titrate home BP meds Follow troponin Cardiology consult RE chest pain, history CAD N.p.o. until patient seen by Cardiology in a.m. in anticipation of procedure. DVT prophylaxis per Lovenox subcu Full code Text document was generated using [employer] recognition software. It may contain grammatical or spelling errors. Kindly contact undersigned for clarification of any documentation item in question. History of Present Illness Chief Complaint: Chest pain Primary Care Provider: Negro Silva MD History obtained from patient and records. Medical history significant for coronary artery disease, chronic LBBB, hypertension, hyperlipidemia, obstructive sleep apnea on CPAP, depression, recurrent UTIs on chronic Macrodantin Rx. Last confinement May 2018 for atypical chest pain. No inducible ischemia on outpatient pharmacologic stress test. Patient seen at [facility] supervisor agricultural education office last week for follow-up visit. Lisinopril stopped on a trial basis due to concerns of dizziness of 2 months duration as per documentation. SBP at home 130s on regimen since lisinopril discontinued as per patient. 2 nights ago patient noted substernal pain sometimes going to the left shoulder reminiscent of prior chest pain episodes, intermittent symptoms noted the following day. At some point left-sided chest pain felt sharp. No cough symptoms. No unusual shortness of breath. Compliant with home medications. Patient doing some basement work with her . Discomfort relieved by nitroglycerin at home. Nitropaste administered upon arrival at the ER. MEDICAL HISTORY: As above. Patient recovered from COVID-19 illness January 2020. SURGICAL HISTORY: Hysterectomy, oophorectomy, cystocele/rectocele repair, vulvar lesion repair, foot surgery, shoulder surgery, Breast biopsy, ear surgery, sinus surgery, eyelid surgery, tonsillectomy, neck surgery FAMILY HISTORY: heart disease. DM PERSONAL AND SOCIAL HISTORY: Nonsmoker. Occasional EtOH intake. 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 Allergies Allergy/AdvReac Type Severity Reaction Status Date / Time clavulanic acid Allergy Intermediate RASH Verified 03/06/20 23:54 erythromycin base Allergy Intermediate RASH Verified 03/06/20 23:54 Penicillins Allergy Intermediate RASH Verified 03/06/20 23:54 tetracycline Allergy Intermediate RASH Verified 03/06/20 23:54 Sulfa (Sulfonamide Allergy Unknown RASH Verified 03/06/20 23:54 Antibiotics) Home Medications Medication Instructions Recorded Confirmed Type amlodipine 5 mg PO QAM 11/17/17 03/06/20 History aspirin [Aspirin Low Dose] 81 mg PO QAM 11/17/17 03/06/20 History atorvastatin 80 mg PO HS 11/17/17 03/06/20 History calcium carbonate-vitamin D3 1 tab PO HS 11/17/17 03/06/20 History [Calcium 600 + D(3)] gabapentin 600 mg PO HS 11/17/17 03/06/20 History methenamine hippurate 1 g PO BID 11/17/17 03/06/20 History metoprolol succinate [Toprol XL] 25 mg PO QAM 11/17/17 03/06/20 History aspduomv-axf-UR-lycopen-lutein 1 tab PO QAM 11/17/17 03/06/20 History [Centrum Silver] omega 3-nsl-oar-fish oil [Fish Oil] 2 cap PO BID 11/17/17 03/06/20 History omeprazole 20 mg PO BID PRN 11/17/17 03/06/20 History fluoxetine 20 mg PO DAILY 03/06/20 03/06/20 History Past Med/Surg History Medical History (Updated 03/07/20 @ 00:07 by Jorge Baldwin MD) CAD (coronary atherosclerotic disease) History of left bundle branch block (LBBB) HLD (hyperlipidemia) MORE on CPAP Rectocele "s/p repair" Traumatic perforation of large intestine "during surgery for BSO" Surgical History (Updated 12/01/19 @ 13:20 by Joelle Erazo) H/O foot surgery RIGHT H/O sinus surgery H/O: hysterectomy History of back surgery History of bladder surgery History of breast lump/mass excision benign tumor History of colon surgery repair of bowel perforation History of excision of lesion basal cell removed from shoulder History of eye surgery History of surgery tailbone (unspecified) History of surgery ovarian surgery Hx of shoulder surgery bladder Hx of tonsillectomy S/P BSO (status post bilateral salpingo-oophorectomy) S/P myringotomy with insertion of tube Family History (Updated 12/01/19 @ 13:06 by Joelle Erazo) Brother Hearing loss Cancer Heart disease Mother Hypertension Heart disease Father Heart disease Social History (Updated 12/01/19 @ 13:04 by Joelle Erazo) Smoking Status: Never smoker Hx Alcohol Use: No Hx Substance Use: No Preferred Language: Stateless Communication Ability: Effective Beliefs That Will Affect Care: None marital status: Current Living Situation: Spouse current occupational status: retired How many Children do You have: 2 Other Information That Helps Us Care for You: No Feels Safe at Home: Yes Safety Concerns: Feels Safe At This Time Assistive Devices: Glasses Review of Systems Review of Systems: As per HPI, all 10 systems reviewed, all other ROS negative Physical Exam Physical Exam: GENERAL: Comfortable, pleasant, obese, no respiratory distress SKIN: Normal color, warm HEENT: Bespectacled, [place] palpebral conjunctivae, no ptosis, dry buccal mucosa NECK : Supple, no tenderness CHEST : CTA, anterior chest wall tenderness left HEART : RRR, no obvious murmurs ABDOMEN: Some distention, nontender EXTREMITIES : Minimal LE swelling, no LE tenderness, no other conspicuous deformities noted NEUROLOGIC : Coherent, no facial asymmetry, no other gross focality Results & Data Results & Data ([facility]) Vital Signs (Past 12 Hours) Vital Signs Temp Pulse Pulse Resp BP BP Pulse Ox 03/07/20 01:36 60 18 144/70 H 97 03/07/20 00:31 63 13 146/62 H 96 03/07/20 00:01 73 17 160/75 H 95 03/06/20 23:31 63 13 146/75 H 94 03/06/20 23:01 77 18 169/66 H 97 03/06/20 23:00 97 03/06/20 22:48 83 24 154/85 H 98 03/06/20 22:33 36.6 C 87 18 156/75 H 96 Laboratory Results Laboratory Results WBC 8.53 K/uL (4.8-10.8) 03/06/20 22:54 RBC 4.47 M/uL (4.2-5.4) 03/06/20 22:54 Hgb 13.5 g/dL (12.0-16.0) 03/06/20 22:54 Hct 40.8 % (37-47) 03/06/20 22:54 MCV 91.3 fL (80-100) 03/06/20 22:54 MCH 30.2 pg (25-34) 03/06/20 22:54 MCHC 33.1 g/dL (32-36) 03/06/20 22:54 RDW Std Deviation 45.2 fL (36.4-46.3) 03/06/20 22:54 RDW Coeff of Meggan 13.7 % (11.5-14.5) 03/06/20 22:54 Plt Count 212 K/uL (130-400) 03/06/20 22:54 MPV 9.4 fL (7.4-10.4) 03/06/20 22:54 Immature Gran % (Auto) 0.5 % 03/06/20 22:54 Neut % (Auto) 54.7 % 03/06/20 22:54 Lymph % (Auto) 28.8 % 03/06/20 22:54 [place] % (Auto) 9.5 % 03/06/20 22:54 Eos % (Auto) 5.9 % 03/06/20 22:54 Baso % (Auto) 0.6 % 03/06/20 22:54 Neut # (Auto) 4.67 K/uL (1.4-6.5) 03/06/20 22:54 Lymph # (Auto) 2.46 K/uL (1.2-3.4) 03/06/20 22:54 [place] # (Auto) 0.81 K/uL (0.11-0.59) H 03/06/20 22:54 Eos # (Auto) 0.50 K/uL (0-0.5) 03/06/20 22:54 Baso # (Auto) 0.05 K/uL (0-0.2) 03/06/20 22:54 Immature Gran # (Auto) 0.04 K/uL (0.00-0.02) H 03/06/20 22:54 PT 11.2 Seconds (9.0-12.0) 03/07/20 00:00 INR 1.1 (0.9-1.1) 03/07/20 00:00 APTT 28.5 Seconds (21.0-31.0) 03/07/20 00:00 PTT Ratio 1.0 03/07/20 00:00 D-Dimer 410 ug/L FEU (0-500) 03/07/20 00:00 Sodium 143 mmol/L (136-145) 03/06/20 22:54 Potassium 3.8 mmol/L (3.5-5.1) 03/06/20 22:54 Chloride 111 mmol/L (98-107) H 03/06/20 22:54 Carbon Dioxide 26 mmol/L (21-32) 03/06/20 22:54 Anion Gap 6.0 (3-11) 03/06/20 22:54 BUN 27 mg/dl (7-18) H 03/06/20 22:54 Creatinine 0.81 mg/dl (0.6-1.2) 03/06/20 22:54 Est Cr Clr Drug Dosing 81.2 ml/min 03/06/20 22:54 Est GFR ( Amer) 87.1 03/06/20 22:54 Est GFR (Non-Af Amer) 75.2 03/06/20 22:54 BUN/Creatinine Ratio 33.5 (10-20) H 03/06/20 22:54 Glucose 101 mg/dl (70-99) H 03/06/20 22:54 Calcium 9.3 mg/dl (8.5-10.1) 03/06/20 22:54 Total Bilirubin 0.5 mg/dl (0.2-1) 03/06/20 22:54 AST 22 U/L (15-37) 03/06/20 22:54 ALT 33 U/L (12-78) 03/06/20 22:54 Alkaline Phosphatase 78 U/L (45-117) 03/06/20 22:54 Troponin I < 0.015 ng/ml (0-0.045) 03/06/20 22:54 Total Protein 7.3 gm/dl (6.4-8.2) 03/06/20 22:54 Albumin 3.6 gm/dl (3.4-5.0) 03/06/20 22:54 Globulin 3.7 gm/dl (2.5-4.0) 03/06/20 22:54 Albumin/Globulin Ratio 1.0 (0.9-2) 03/06/20 22:54 Lipase 137 U/L (73-393) 03/06/20 22:54 COVID-19 Eval Order Covid19 IDNow [facility] 03/07/20 00:40 SARS-CoV-2, RNA, NAAT NEGATIVE (NEGATIVE) 03/07/20 00:40 Diagnostic Findings Chest x-ray as per my interpretation cardiomegaly, no infiltrate, no congestion EKG as per my interpretation : Rate 80, NSR, 1 AVB, LAD, LAFB, LBBB
[2020-03-07] MEDS ORDERED: ACETAMINOPHEN 325 MG TAB PO PRN (03:13)
[2020-03-07] MEDS ORDERED: PROMETHAZINE HCL 12.5 MG in SODIUM CHLORIDE 0.9% 50 ML IV PRN (03:13)
[2020-03-07] MEDS ORDERED: traMADol HCL 50 MG TABLET PO PRN (03:13)
[2020-03-07] MEDS ORDERED: SODIUM CHLOR 0.45% + 20MEQ KCL 20 MEQ/1,000 ML BAG IV SCH (03:13)
[2020-03-07] MEDS ORDERED: MoRPHine SULFATE 4 MG/ML 1 ML CARP\\VIAL IV PRN (03:13)
[2020-03-07] MEDS ORDERED: LORazepam 0.5 MG/1 ML VIAL IV PRN (03:13)
[2020-03-07] MEDS ORDERED: PANTOprazole 40 MG TAB PO PRN (03:20)
[2020-03-07] MEDS ORDERED: lisinopril 5 MG TAB PO SCH ×2 (03:45→09:00)
[2020-03-07] MEDS ORDERED: amLODIPine BESYLATE 5 MG TAB PO SCH ×2 (04:20→09:00)
--- NOTE | 2020-03-07 07:05 | XRay Report ---
XR chest 1V portable HISTORY: 69 years-old Female Chest Pain acute atypical chest pain COMPARISON: Chest radiograph 05/31/2018 TECHNIQUE: Portable AP view of the chest FINDINGS: Cardiac silhouette is upper limits of normal in size. No pneumothorax, pleural effusion, airspace con solidation or overt pulmonary edema. Degenerative changes of the shoulders and spine. IMPRESSION: No acute process. ACT 112: Negative or not required by law. The above report was generated using voice recognition software. It may contain grammatical, syntax o r spelling errors. Electronically signed by: Ok Pollock M.D. 03/07/2020 7:04 AM
[2020-03-07 08:07] LABS: Basophils # (auto) 0.05 K/uL (0-0.2); Basophils % (auto) 0.7 %; Eosinophils # (auto) 0.39 K/uL (0-0.5); Eosinophils % (auto) 5.8 %; Hematocrit (blood only) 37.5 % (37-47); Hemoglobin 12.5 g/dL (12.0-16.0); Immature Granulocytes # (auto) 0.01 K/uL (0.00-0.02); Immature Granulocytes % (auto) 0.1 %; Lymphocytes # (auto) 1.85 K/uL (1.2-3.4); Lymphocytes % (auto) 27.5 %; Mean Corpuscular Hemoglobin 30.1 pg (25-34); Mean Corpuscular Hgb Conc 33.3 g/dL (32-36); Mean Corpuscular Volume 90.4 fL (80-100); Mean Platelet Volume 9.2 fL (7.4-10.4); Monocytes # (auto) 0.66 K/uL (0.11-0.59); Monocytes % (auto) 9.8 %; Neutrophils # (auto) 3.76 K/uL (1.4-6.5); Neutrophils % (auto) 56.1 %; Platelet Count 192 K/uL (130-400); RDW Coefficient of Variation 13.7 % (11.5-14.5); RDW Standard Deviation 45.3 fL (36.4-46.3); Red Blood Count 4.15 M/uL (4.2-5.4); White Blood Count 6.72 K/uL (4.8-10.8)
[2020-03-07 08:31] LABS: Partial Thromboplastin Time 28.6 Seconds (21.0-31.0)
[2020-03-07 08:42] LABS: BUN Creatinine Ratio 36.5 (10-20); Blood Urea Nitrogen 23 mg/dl (7-18); Calcium 9.2 mg/dl (8.5-10.1); Carbon Dioxide 26 mmol/L (21-32); Chloride 112 mmol/L (98-107); Cholesterol 135 mg/dl (0-200); Creatinine Clr Calc Pharmacy 102.4 ml/min; Est GFR (Non-African American) 92.3; Glucose 105 mg/dl (70-99); Potassium 3.9 mmol/L (3.5-5.1); Sodium 143 mmol/L (136-145)
[2020-03-07 08:47] LABS: Chol HDL Ratio 3; HDL Cholesterol 50 mg/dl; LDL Cholesterol Calculated 69 mg/dl; Triglycerides 80 mg/dl (0-150); Troponin I < 0.015 ng/ml (0-0.045); VLDL Cholesterol 16 mg/dl
[2020-03-07] MEDS ORDERED: OMEGA-3 (PURIFIED FISH OIL) 1 GM CAP PO SCH (09:00)
[2020-03-07] MEDS ORDERED: FLUoxetine HCL 20 MG CAP PO SCH (09:00)
[2020-03-07] MEDS ORDERED: ENOXAPARIN INJ 40 MG/0.4 ML SYR SQ SCH (09:00)
[2020-03-07] MEDS ORDERED: CEROVITE ADV FORMULA TAB PO SCH (09:00)
[2020-03-07] MEDS ORDERED: ASPIRIN 81 MG ECTAB PO SCH (09:00)
[2020-03-07] MEDS ORDERED: METHENAMINE HIPPURATE 1 GM TAB PO SCH (09:00)
[2020-03-07] MEDS ORDERED: METOPROLOL SUCC 25MG EXT REL TAB PO SCH (09:00)
--- NOTE | 2020-03-07 10:14 | Cardiology Consultation ---
Date of Consultation March 07, 2020 Assessment & Plan (1) Chest pain: (2) LBBB (left bundle branch block): 79-year-old female with recurrent chest pressure that has waxed and waned for several days, troponin negative x3. EKG last evening revealed sinus rhythm at 82 bpm with first-degree AV block, left bundle branch block, QRS duration of 148 ms. Compared to recent outpatient EKG on 03/01/2020, intermittent left bundle branch block is noted, as her QRS was more narrow at the time for outpatient EKG. This intermittent left bundle branch block is a previously noted chronic finding for her. Her most recent cardiac catheterization took place about 3 years ago, with noted 50% LAD lesion, relatively unchanged compared to 2013. Her discomfort is somewhat atypical for angina, rest, however she does describe it as being a "pressure "not sent characteristic of GI etiology, as it has occurred in this morning, while she is NPO. Her D-dimer screen was normal. Proceed with resting echocardiogram, with future considerations to include repeat stress testing or cardiac catheterization. Addendum, 03/07/2020, 12:03 PM: Patient underwent resting echocardiogram, with normal LVEF, abnormal septal motion consistent with left bundle branch block. Dobutamine stress echocardiogram was performed with appropriate increase in left ventricular systolic function. Septal wall motion was synergistic consistent with left bundle branch block with appropriate augmentation of the remaining segments. No symptoms suggestive angina were reproduced. Upon reassessment after the patient's resting echo, there is definitely a reproducible musculoskeletal component at the left sternal costal margin. Patient may have strained something cleaning. She did have COVID-19 a month ago, and her resting echo was encouraging and that she does not have any evidence of pericardial fluid or decline in her EF. Patient stable for discharge from cardiac perspective on her prior medication list. Continue to hold lisinopril due to recent dizziness. She has plans for blood pressure recheck in our office in a few weeks. (3) Dizziness: Although systolic blood pressures in the 140-160s noted on presentation, patient describes recent dizziness. BP well controlled this am 128/75. Continue metoprolol and amlodipine. Continue to hold lisinopril. (4) HLD (hyperlipidemia): Continue atorvastatin 80 mg. History of Present Illness Attending Physician: Cm Gil MD History of Present Illness Elida Young is a 69 year old female seen in cardiology consultation per the request of Dr. Hardy for the evaluation of chest discomfort. The patient is well-known to the undersigned as I follow her as an outpatient with most recent outpatient visit last week on 03/01/2020. At that time she had been feeling well exception of recent dizziness. At the time of her visit last week, she d escribed being diagnosed with COVID-19 on 02/01/2020. At that time she described generalized viral symptoms and she also had on and off again heartburn that was relieved with antacids. She noted no new or worsening exertional chest discomfort. She did note recent dizziness, prompting discontinuation of lisinopril 5 mg daily at the time of her recent visit a week ago, ongoing treatment with metoprolol succinate 25 mg daily and amlodipine 5 mg daily was continued. Two days ago felt a pressure sensation after dinner, that his persisted until now. As summarized in my previous progress note, she has a long-standing history of recurrent chest discomfort that has been felt to be atypical uncharacteristic for angina. In September, she presented to the emergency department at [facility] with recurrent chest discomfort. EKG revealed evidence of a left bundle branch block which was interpreted as being a new left bundle branch block, although in retrospect she have a history of an intermittent left bundle branch block noted on previous outpatient EKG tracings. Due to her progressive chest discomfort and left bundle branch block on EKG she was taken to the cardiac catheterization laboratory on emergent basis by interventional Cardiology and underwent coronary angiography demonstrating stable nonobstructive coronary heart disease with an LAD stenosis in the range of 40 to 50% which was unchanged compared to her prior cardiac catheterization dating back to 2012. At the time of the 2013 cardiac catheterization, fractional flow reserve evaluation of the LAD lesion was found to be non hemodynamically significant. She has a history of prior nonischemic response is to dobutamine stress testing in 2012, 2013, and in 2014. She'd also undergone a pharmacologic nuclear stress test in Jun, 2018, with preserved LV EF, and no evidence of inducible ischemia. Allergies Allergy/AdvReac Type Severity Reaction Status Date / Time clavulanic acid Allergy Intermediate RASH Verified 03/06/20 23:54 erythromycin base Allergy Intermediate RASH Verified 03/06/20 23:54 Penicillins Allergy Intermediate RASH Verified 03/06/20 23:54 tetracycline Allergy Intermediate RASH Verified 03/06/20 23:54 Sulfa (Sulfonamide Allergy Unknown RASH Verified 03/06/20 23:54 Antibiotics) Home Medications Medication Instructions Recorded Confirmed Type amlodipine 5 mg PO QAM 11/17/17 03/06/20 History aspirin [Aspirin Low Dose] 81 mg PO QAM 11/17/17 03/06/20 History atorvastatin 80 mg PO HS 11/17/17 03/06/20 History calcium carbonate-vitamin D3 1 tab PO HS 11/17/17 03/06/20 History [Calcium 600 + D(3)] gabapentin 600 mg PO HS 11/17/17 03/06/20 History methenamine hippurate 1 g PO BID 11/17/17 03/06/20 History metoprolol succinate [Toprol XL] 25 mg PO QAM 11/17/17 03/06/20 History uukaszov-qaq-BL-lycopen-lutein 1 tab PO QAM 11/17/17 03/06/20 History [Centrum Silver] omega 9-fac-cyv-fish oil [Fish Oil] 2 cap PO BID 11/17/17 03/06/20 History omeprazole 20 mg PO BID PRN 11/17/17 03/06/20 History fluoxetine 20 mg PO DAILY 03/06/20 03/06/20 History Patient History Medical History CAD (coronary atherosclerotic disease) History of left bundle branch block (LBBB) HLD (hyperlipidemia) MORE on CPAP Rectocele "s/p repair" Traumatic perforation of large intestine "during surgery for BSO" Surgical History H/O foot surgery RIGHT H/O sinus surgery H/O: hysterectomy History of back surgery History of bladder surgery History of breast lump/mass excision benign tumor History of colon surgery repair of bowel perforation History of excision of lesion basal cell removed from shoulder History of eye surgery History of surgery tailbone (unspecified) History of surgery ovarian surgery Hx of shoulder surgery bladder Hx of tonsillectomy S/P BSO (status post bilateral salpingo-oophorectomy) S/P myringotomy with insertion of tube Family History Brother Hearing loss Cancer Heart disease Mother Hypertension Heart disease Father Heart disease Social History Smoking Status: Never smoker Hx Alcohol Use: No Hx Substance Use: No Preferred Language: Nigerian Communication Ability: Effective Beliefs That Will Affect Care: None marital status: Current Living Situation: Spouse current occupational status: retired How many Children do You have: 2 Other Information That Helps Us Care for You: No Feels Safe at Home: Yes Safety Concerns: Feels Safe At This Time Assistive Devices: None Review of Systems Review of Systems: All systems reviewed & are unremarkable except as noted in HPI & below Physical Exam Physical Exam: Temp Pulse Resp BP Pulse Ox 36.7 C 62 18 128/75 94 03/07/20 07:54 03/07/20 08:00 03/07/20 03:05 03/07/20 07:54 03/07/20 07:54 Constitutional: WD/WN, vitals as above Respiratory: normal respiratory effort, lungs clear to auscultation Cardiovascular: RRR, no murmur, no edema Gastrointestinal (Abdomen): normal bowel sounds, soft, nontender, no hepatosplenomegaly Neurologic: PERRL, EOMI, accommodation nl, no face palsy, no dysarthria Results & Data ([facility]) Vital Signs (Past 12 Hours) Vital Signs Temp Pulse Pulse Resp BP BP Pulse Ox 03/07/20 08:00 62 03/07/20 07:54 36.7 C 68 128/75 94 03/07/20 03:41 64 03/07/20 03:05 36.7 C 69 18 159/75 H 95 03/07/20 02:30 66 13 136/65 98 03/07/20 02:01 62 14 136/61 97 03/07/20 01:36 60 18 144/70 H 97 03/07/20 00:31 63 13 146/62 H 96 03/07/20 00:01 73 17 160/75 H 95 03/06/20 23:31 63 13 146/75 H 94 03/06/20 23:01 77 18 169/66 H 97 03/06/20 23:00 97 03/06/20 22:48 83 24 154/85 H 98 03/06/20 22:33 36.6 C 87 18 156/75 H 96 Laboratory Results Cardiac Enzymes 03/06/20 03/07/20 03/07/20 Range/Units 22:54 02:22 07:54 AST 22 (15-37) U/L Troponin I < 0.015 < 0.015 < 0.015 (0-0.045) ng/ml Coagulation 03/06/20 03/07/20 03/07/20 Range/Units 22:54 00:00 07:54 PT Cancelled 11.2 APTT Cancelled 28.5 28.6 Lipids 03/07/20 Range/Units 07:54 Triglycerides 80 (0-150) mg/dl Cholesterol 135 (0-200) mg/dl HDL Cholesterol 50 mg/dl Cholesterol/HDL Ratio 3 CBC 03/06/20 03/07/20 Range/Units 22:54 07:54 WBC 8.53 6.72 (4.8-10.8) K/uL RBC 4.47 4.15 L (4.2-5.4) M/uL Hgb 13.5 12.5 (12.0-16.0) g/dL Hct 40.8 37.5 (37-47) % Plt Count 212 192 (130-400) K/uL Neut # (Auto) 4.67 3.76 (1.4-6.5) K/uL Lymph # (Auto) 2.46 1.85 (1.2-3.4) K/uL [place] # (Auto) 0.81 H 0.66 H (0.11-0.59) K/uL Eos # (Auto) 0.50 0.39 (0-0.5) K/uL Baso # (Auto) 0.05 0.05 (0-0.2) K/uL Comprehensive Metabolic Panel 03/06/20 03/07/20 Range/Units 22:54 07:54 Sodium 143 143 (136-145) mmol/L Potassium 3.8 3.9 (3.5-5.1) mmol/L Chloride 111 H 112 H (98-107) mmol/L Carbon Dioxide 26 26 (21-32) mmol/L BUN 27 H 23 H (7-18) mg/dl Creatinine 0.81 0.64 (0.6-1.2) mg/dl Glucose 101 H 105 H (70-99) mg/dl Calcium 9.3 9.2 (8.5-10.1) mg/dl AST 22 (15-37) U/L ALT 33 (12-78) U/L Alkaline Phosphatase 78 (45-117) U/L Total Protein 7.3 (6.4-8.2) gm/dl Albumin 3.6 (3.4-5.0) gm/dl Intake and Output 03/06/20 03/07/20 03/07/20 22:59 06:59 14:59 Other: # Unmeasured Voids 1 Weight 95 kg 94.3 kg Weight Measurement Method Chair Scale Standing Scale
[2020-03-07] MEDS ORDERED: ATROPINE SULFATE 0.1 MG/ML 10ML SYR IV ONE (11:18)
[2020-03-07] MEDS ORDERED: DOBUTamine HCL 12.5 MG/ML 20 ML VIAL IV ONE (11:18)
[2020-03-07] MEDS ORDERED: METOPROLOL TARTRATE 1 MG/ML VIAL IV ONE (11:18)
--- NOTE | 2020-03-07 12:05 | Communication Note ---
Date of Service: March 07, 2020 Patient seen and examined this morning. Doing okay. No episodes of chest pain at the moment. Hemodynamically doing fine. Remains NPO. Awaiting cardiology input. Cardiac enzymes are not concerning.
--- NOTE | 2020-03-07 12:11 | Discharge Summary ---
Date of Service March 07, 2020 Admission HPI Per Admitting Provider History obtained from patient and records. Medical history significant for coronary artery disease, chronic LBBB, hypertension, hyperlipidemia, obstructive sleep apnea on CPAP, depression, recurrent UTIs on chronic Macrodantin Rx. Last confinement May 2018 for atypical chest pain. No inducible ischemia on outpatient pharmacologic stress test. Patient seen at [facility] sales merchandise associate office last week for follow-up visit. Lisinopril stopped on a trial basis due to concerns of dizziness of 2 months duration as per documentation. SBP at home 130s on regimen since lisinopril discontinued as per patient. 2 nights ago patient noted substernal pain sometimes going to the left shoulder reminiscent of prior chest pain episodes, intermittent symptoms noted the following day. At some point left-sided chest pain felt sharp. No cough symptoms. No unusual shortness of breath. Compliant with home medications. Patient doing some basement work with her . Discomfort relieved by nitroglycerin at home. Nitropaste administered upon arrival at the ER. MEDICAL HISTORY: As above. Patient recovered from COVID-19 illness January 2020. SURGICAL HISTORY: Hysterectomy, oophorectomy, cystocele/rectocele repair, vulvar lesion repair, foot surgery, shoulder surgery, Breast biopsy, ear surgery, sinus surgery, eyelid surgery, tonsillectomy, neck surgery FAMILY HISTORY: heart disease. DM PERSONAL AND SOCIAL HISTORY: Nonsmoker. Occasional EtOH intake. 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 Admission Exam Per Admitting Provider GENERAL: Comfortable, pleasant, obese, no respiratory distress SKIN: Normal color, warm HEENT: Bespectacled, [place] palpebral conjunctivae, no ptosis, dry buccal mucosa NECK : Supple, no tenderness CHEST : CTA, anterior chest wall tenderness left HEART : RRR, no obvious murmurs ABDOMEN: Some distention, nontender EXTREMITIES : Minimal LE swelling, no LE tenderness, no other conspicuous deformities noted NEUROLOGIC : Coherent, no facial asymmetry, no other gross focality Principal Diagnosis Chest pain: Anginal or possibly musculoskeletal Discharge Exam General: A&Ox3. HENT: NCAT, MMM, EOMI Eyes: PERRLA Neck: Supple, normal range of motion CVS: normal rate and rhythm Resp: b/l good breath sounds Abdomen: Soft, ND/NT, +BS Extremities: No c/c/e Neuro: no focal deficit Skin: warm and dry MSK: normal ROM Discharge Data Allergies Allergy/AdvReac Type Severity Reaction Status Date / Time clavulanic acid Allergy Intermediate RASH Verified 03/06/20 23:54 erythromycin base Allergy Intermediate RASH Verified 03/06/20 23:54 Penicillins Allergy Intermediate RASH Verified 03/06/20 23:54 tetracycline Allergy Intermediate RASH Verified 03/06/20 23:54 Sulfa (Sulfonamide Allergy Unknown RASH Verified 03/06/20 23:54 Antibiotics) Consultations 03/07/20 00:00 ED Decision to Admit Stat 03/07/20 03:13 Consult Cardiology Routine Hospital Course (1) Chest pain: Patient is 69-year-old female who was admitted with chest pain. Cardiology was consulted. EKG was nonischemic. Cardiac enzymes were not concerning. Patient had a stress test that was negative for any acute findings. Cardiology recommended discharge patient and follow-up with cardiology as an outpatient. Total Time Total Time Spent Total Time Spent (In Minutes): 35 Discharge Plan Discharge Items Patient Disposition: Home - Self-Care Reason For Visit: CHEST PAIN Discharge Diagnosis: anginal or mSK chest pain Activity: Resume your previous activity Non-emergency contact: Primary Care Provider Call non-emergency contact if: your symptoms worsen Follow-up/Referrals: Negro Silva MD [Primary Care Provider] - (Date & Time 03/13/2020 9:40 AM Provider Negro Silva MD [facility] ) Diet: Heart Healthy Addtl Attending Provider Instructions: Follow-up with your sales merchandise associate as scheduled appointment. Pending Studies at Discharge: No Stand-Alone Forms: [facility] [employer], Smoking Cessation Medications and DC Order Prescriptions: New nitroglycerin [Nitrostat] 0.4 mg Tablet, Sublingual 0.4 mg sublingual UD Qty: 20 RF: 0 Continued gabapentin 300 mg capsule 600 mg PO HS RF: 0 atorvastatin 80 mg tablet 80 mg PO HS RF: 0 amlodipine 5 mg tablet 5 mg PO QAM RF: 0 aspirin [Aspirin Low Dose] 81 mg Tablet,Delayed Release (Dr/Ec) 81 mg PO QAM RF: 0 methenamine hippurate 1 gram tablet 1 g PO BID RF: 0 omeprazole 20 mg capsule,delayed release(DR/EC) 20 mg PO BID PRN (Reason: Gi Upset) RF: 0 metoprolol succinate [Toprol XL] 25 mg tablet extended release 24 hr 25 mg PO QAM RF: 0 Centrum Silver 0.4-300-250 mg-mcg-mcg Tablet 1 tab PO QAM RF: 0 Calcium 600 + D(3) 600 mg calcium- 200 unit Capsule 1 tab PO HS RF: 0 omega 6-ejx-oug-fish oil [Fish Oil] 1,000 mg (120 mg-180 mg) Capsule 2 cap PO BID RF: 0 fluoxetine 20 mg capsule 20 mg PO DAILY RF: 0 Discharge Orders: Discharge Order (Routine); Ordered 03/07/20 Ordered By: Cm Gil Admission Data Admit Date/Time: 03/07/20 01:58 Attending Provider: Cm Gil Admit Provider: Khurram Hardy Primary Care Provider: Negro Silva Other Providers: Khurram Hardy ; Tyson Quintana ; George Pyle ; Yinka Scott ; Ananda Smith ; Kai Julien ; Ebenezer Ayala ; Tammy Osei ; Johnna Lawson ; Juan C Dhaliwal
[2020-03-07] MEDS ORDERED: CALCIUM 600MG + VIT D 400 IU TAB PO SCH (21:00)
[2020-03-07] MEDS ORDERED: ATORVASTATIN 40 MG TAB PO SCH (21:00)
[2020-03-07] MEDS ORDERED: GABAPENTIN 300 MG CAP PO SCH (21:00)
--- NOTE | 2020-03-08 06:20 | Electrocardiogram Report ---
Test Reason : Blood Pressure : / mmHG Vent. Rate : 082 BPM Atrial Rate : 082 BPM P-R Int : 216 ms QRS Dur : 148 ms QT Int : 426 ms P-R-T Axes : 057 -72 088 degrees QTc Int : 497 ms Sinus rhythm with 1st degree A-V block Left axis deviation Left bundle branch block Abnormal ECG When compared with ECG of 31-MAY-2018 09:27, Left bundle branch block is now Present Confirmed by Doyle Cruz ([id number]) on 03/08/2020 6:20:26 AM Referred By: REFERRED SELF Confirmed By:Doyle Cruz
== END 2020-03-07 13:37 | disposition home or self-care (01) ==
LOC: ED 22:29 → 2S 22:29